=== PATIENT | male | born 1970 | race Two or more races ===

== ENCOUNTER 2021-11-18 06:32 | Emergency (ER) | payer MEDICAID, SELFPAY ==
--- NOTE | 2021-11-18 | ECG_ITS ---
Test Reason : chest pain Blood Pressure : / mmHG Vent. Rate : 101 BPM Atrial Rate : 101 BPM P-R Int : 148 ms QRS Dur : 082 ms QT Int : 352 ms P-R-T Axes : 048 021 020 degrees QTc Int : 456 ms Sinus tachycardia Otherwise normal ECG When compared with ECG of 28-JUL-2016 20:19, No significant change was found Referred By: Generic ED Physician Electronically Signed By:Brayan Maldonado
--- NOTE | ~2021-11-18 | XR_ITS ---
EXAMINATION: XR CHEST CLINICAL INFORMATION: Chest pain. COMPARISON: Chest CTA dated 07/28/2016. TECHNIQUE: Frontal view of the chest was obtained. FINDINGS: No significant abnormality is noted involving the heart, lungs, mediastinum, bony thorax or soft tissues. XR/XR chest 1V IMPRESSION: No acute cardiopulmonary process.
[2021-11-18 07:01] VITALS: BP 138/89; PULSE 109; RESP 20; TEMP 37.6; O2SAT 93; BMI 32.8
--- NOTE | 2021-11-18 07:10 | ED.NAVMDI ---
HPI - Nausea/Vomiting/Diarrhea General Chief complaint: Nausea/Vomiting/Diarrhea Stated complaint: n/v, fatigue Time Seen by Provider: 11/18/21 07:07 Source: patient Mode of arrival: ambulatory Limitations: no limitations History of Present Illness HPI Narrative: 51 yo male with hx of DM oral medications states he had 3 beers last night and 6 shots then vomited all night - he now feels weak, tired and has some diarrhea, he has chest burning as well. MD elicited complaint: nausea, vomiting and diarrhea Pertinent past history: alcohol abuse Onset (ago): hour(s) (several) Description of vomiting: food contents and watery Associated nausea: Yes Associated abdominal pain: Yes Location of pain: chest and epigastric Radiation: epigastric Pain consistency: constant Severity: moderate Quality: dull and other (burning) Exacerbating factors: eating Relieving factors: none Context: alcohol abuse Associated symptoms: chest pain, loss of appetite, malaise and nausea/vomiting Related Data Previous Rx's Medication Instructions Recorded famotidine 20 mg tablet (Pepcid) 20 mg PO DAILY PRN abdominal 11/18/21 discomfort #30 tabs ondansetron 4 mg disintegrating 4 mg PO Q8H PRN nausea and 11/18/21 tablet vomiting #20 tabs Allergies Allergy/AdvReac Type Severity Reaction Status Date / Time metformin [METFORMIN] Allergy Mild UPSET Unverified 11/18/21 07:04 STOMACH, DIARRHEA Review of Systems Review of Systems: Constitutional : No Weight loss, No Fever, No Chills ENT/Mouth : No sore throat, No Rhinorrhea Eyes: No Swelling, No Redness Cardiovascular : pos Chest Pain, No SOB, NoEdema Respiratory : No Cough, No Sputum, No Wheezing Gastrointestinal : Positive Nausea, Positive Vomiting, positive Diarrhea, positive abdominal Pain, No Hematochezia, No Melena Genitourinary : No Dysuria, No Urinary Frequency, No Hematuria, No Urgency Musculoskeletal : No joint pain, No Myalgias, No Joint Swelling Skin : No Skin Lesions, No rash Neuro : No Weakness, No Numbness, No Dizziness, No Headache Psych : No Anxiety/Panic, No Depression Heme/Lymph: No Bruising, No Lymphadenopathy Endocrine : No Polyuria, No Polydipsia All other systems reviewed and are negative. Gastrointestinal: Gastrointestinal: Reports nausea PMFSH Past Medical History Attestation statement: The following information was validated with the patient. Medical History (Updated 11/18/21 @ 08:41 by Brandee Duvall DO) Diabetes Social History Social History (Updated 11/18/21 @ 07:18 by Brandee Duvall DO) Alcohol intake: current Patient Tobacco Use Status: Current someday Tobacco user Advance Directives: No Advance Directives Information Provided: No Physical Exam Vital Signs: Vital Signs: Last Vital Signs Temp 99.6 F 11/18/21 07:01 Pulse 109 H 11/18/21 07:01 Resp 20 11/18/21 07:01 BP 138/89 11/18/21 07:01 Pulse Ox 93 11/18/21 07:01 O2 Del Method 11/18/21 07:01 BMI result Body Mass Index 32.8 Appearance: Alert. Oriented X3. No acute distress. Eyes: Pupils equal, round and reactive to light. ENT: Pharynx normal. Neck: Normal inspection. Neck supple. CVS: tachycardic heart rate and rhythm. Pulses normal. Respiratory: No respiratory distress. Breath sounds normal. Abdomen: Soft and nontender. Skin: Skin warm and dry. Normal skin color. Normal skin turgor. Extremities: No lower extremity edema. No calf ttp Neuro: Oriented X 3. No motor deficit. No sensory deficit. Course Course Course Narrative: feels better stable for DC, tolerating PO MDM - Nausea/Vomiting/Diarrhea MDM Narrative Medical decision making narrative: 51 yo male with hx of DM - drank heavily last night now c/o epigastric pain with n/v and burning chest pain at this time will need labs, troponin, EKG, CXR, IVF zofran/pepcid. possible GERD, gastritis, pancreatitis. Dispo per results and findings. Lab Data Result diagrams: 11/18/21 07:34 11/18/21 07:34 Labs: Lab Results 11/18/21 11/18/21 11/18/21 Range/Units 07:34 07:34 07:34 WBC 10.4 (4.8-10.8) X10*3/uL RBC 4.96 (4.60-5.80) X10*6/uL Hgb 15.0 (14.0-18.0) g/dl Hct 45.1 (42.0-52.0) % MCV 90.9 (80.0-98.0) fL MCH 30.2 (27.0-33.0) pg MCHC 33.3 (31.0-36.0) g/dl RDW 13.2 (11.0-16.0) % Plt Count 185 (160-400) X10*3/uL MPV 10.6 (9.4-12.4) fL Immature Gran % (Auto) 0.7 H (0.0-0.4) % Neut % (Auto) 71.3 (45-73) % Lymph % (Auto) 18.8 L (20-40) % [place] % (Auto) 7.5 (2-11) % Eos % (Auto) 1.3 (0-4) % Baso % (Auto) 0.4 (0-2) % Lymph # (Auto) 2.0 (1.2-4.9) X10*3/uL [place] # (Auto) 0.8 (0.1-1.2) X10*3/uL Eos # (Auto) 0.1 (0.0-0.4) X10*3/uL Baso # (Auto) 0.0 (0.0-0.2) X10*3/uL Abs Immat Gran (auto) 0.07 H (0.00-0.03) X10*3/uL Absolute Neuts (auto) 7.4 (2.0-8.3) x10*3/uL Absolute Nucleated RBC 0.000 (0.0-0.012) X10*3/uL Nucleated RBC % (auto) 0.0 (0.0-0.2) /100WBC Sodium 137 (135-145) mmol/L Potassium 4.6 (3.3-5.1) mmol/L Chloride 99 (96-108) mmol/L Carbon Dioxide 27 (22-29) mmol/L Anion Gap 16 (12-20) BUN 15 (9-16) mg/dL Creatinine 0.95 (0.5-1.4) mg/dL Estim Creat Clear Calc 93.4 Estimated GFR > 60 Random Glucose 185 H (60-115) mg/dL Calcium 10.5 H (8.4-10.2) mg/dL Total Bilirubin 0.5 (0.0-1.0) mg/dL Direct Bilirubin 0.2 (0.0-0.5) mg/dL AST 22 (5-37) U/L ALT 30 (0-40) U/L Alkaline Phosphatase 82 (39-117) U/L Troponin I High Sens (<3.5-35.0) ng/L Total Protein 7.6 (6.5-8.0) g/dL Albumin 4.7 (3.5-5.0) g/dL Lipase 41 (8-78) U/L Ethyl Alcohol < 10 mg/dL COVID-19 (JAMIE) (Negative) COVID-19 Clin Com 11/18/21 11/18/21 Range/Units 07:34 07:34 WBC (4.8-10.8) X10*3/uL RBC (4.60-5.80) X10*6/uL Hgb (14.0-18.0) g/dl Hct (42.0-52.0) % MCV (80.0-98.0) fL MCH (27.0-33.0) pg MCHC (31.0-36.0) g/dl RDW (11.0-16.0) % Plt Count (160-400) X10*3/uL MPV (9.4-12.4) fL Immature Gran % (Auto) (0.0-0.4) % Neut % (Auto) (45-73) % Lymph % (Auto) (20-40) % [place] % (Auto) (2-11) % Eos % (Auto) (0-4) % Baso % (Auto) (0-2) % Lymph # (Auto) (1.2-4.9) X10*3/uL [place] # (Auto) (0.1-1.2) X10*3/uL Eos # (Auto) (0.0-0.4) X10*3/uL Baso # (Auto) (0.0-0.2) X10*3/uL Abs Immat Gran (auto) (0.00-0.03) X10*3/uL Absolute Neuts (auto) (2.0-8.3) x10*3/uL Absolute Nucleated RBC (0.0-0.012) X10*3/uL Nucleated RBC % (auto) (0.0-0.2) /100WBC Sodium (135-145) mmol/L Potassium (3.3-5.1) mmol/L Chloride (96-108) mmol/L Carbon Dioxide (22-29) mmol/L Anion Gap (12-20) BUN (9-16) mg/dL Creatinine (0.5-1.4) mg/dL Estim Creat Clear Calc Estimated GFR Random Glucose (60-115) mg/dL Calcium (8.4-10.2) mg/dL Total Bilirubin (0.0-1.0) mg/dL Direct Bilirubin (0.0-0.5) mg/dL AST (5-37) U/L ALT (0-40) U/L Alkaline Phosphatase (39-117) U/L Troponin I High Sens < 3.5 (<3.5-35.0) ng/L Total Protein (6.5-8.0) g/dL Albumin (3.5-5.0) g/dL Lipase (8-78) U/L Ethyl Alcohol mg/dL COVID-19 (JAMIE) Negative (Negative) COVID-19 Clin Com See Note ECG Data Attestation: I personally reviewed and interpreted this ECG as follows: ECG interpretation date: 11/18/21 ECG interpretation time: 07:24 Interpretation: Rate: 101 Rhythm: sinus tachycardia [place]: normal Normal P waves. Normal SHAILA. Normal QRS complex. ST T wave : normal no JIMMIE qTC: normal prior studies: no acute ischemia The study has been interpreted contemporaneously by me. . Discharge Plan Discharge Clinical Impression: Vomiting Qualifiers: Vomiting type: unspecified Nausea presence: with nausea Qualified Code(s): R11.2 - Nausea with vomiting, unspecified Gastritis Qualifiers: Gastritis type: alcoholic Chronicity: acute Gastritis bleeding: without bleeding Qualified Code(s): K29.20 - Alcoholic gastritis without bleeding Patient Disposition: Home, Self-Care Instructions: Gastritis (ED), Acute Nausea and Vomiting (ED) Additional Instructions: return to ED for any worsening symptoms or concerns please avoid spicy greasy fatty food, no alcohol take pepcid daily for the next 1 week Prescriptions: New famotidine [Pepcid] 20 mg tablet 20 mg PO DAILY PRN (Reason: abdominal discomfort) Qty: 30 0RF ondansetron 4 mg tablet,disintegrating 4 mg PO Q8H PRN (Reason: nausea and vomiting) Qty: 20 0RF Stand Alone Forms: Work/School Release
[2021-11-18 07:38] LABS: MANUAL DIFF FLAG NO
[2021-11-18] MEDS: 0.9 % Sodium Chloride 1,000 ML 999 ML IV (07:38)
[2021-11-18] MEDS: Famotidine/PF 20 MG/2 ML VIAL IVPUSH (07:38)
[2021-11-18] MEDS: ondansetron HCL 4 MG/2 ML VIAL IVPUSH (07:38)
[2021-11-18 07:40] LABS: Basophils Percent Auto 0.4 % (0-2); Eosinophils Absolute Auto 0.1 X10*3/uL (0.0-0.4); Eosinophils Percent Auto 1.3 % (0-4); Hematocrit 45.1 % (42.0-52.0); Imm Gran Abs Auto 0.07 X10*3/uL (0.00-0.03); Imm Gran Pct Auto 0.7 % (0.0-0.4); Lymphocytes Percent Auto 18.8 % (20-40); Mean Corpuscular HGB Conc 33.3 g/dl (31.0-36.0); Mean Corpuscular Hemoglobin 30.2 pg (27.0-33.0); Mean Corpuscular Volume 90.9 fL (80.0-98.0); Mean Platelet Volume 10.6 fL (9.4-12.4); Monocytes Absolute Auto 0.8 X10*3/uL (0.1-1.2); Monocytes Percent Auto 7.5 % (2-11); Neutrophils Absolute Auto 7.4 x10*3/uL (2.0-8.3); Neutrophils Percent Auto 71.3 % (45-73); Platelet Count 185 X10*3/uL (160-400); Red Blood Count 4.96 X10*6/uL (4.60-5.80); Red Cell Distribution Width 13.2 % (11.0-16.0); White Blood Count 10.4 X10*3/uL (4.8-10.8)
[2021-11-18 07:56] LABS: Ethanol < 10 mg/dL
[2021-11-18 07:57] LABS: COVID-19 Test Negative (Negative); IDNOW Serial# 16C4AD1C
[2021-11-18 08:02] LABS: Alanine Aminotransferase 30 U/L (0-40); Albumin Level 4.7 g/dL (3.5-5.0); Alkaline Phosphatase 82 U/L (39-117); Anion Gap 16 (12-20); Aspartate Amino Transferase 22 U/L (5-37); Bilirubin Direct 0.2 mg/dL (0.0-0.5); Bilirubin Total 0.5 mg/dL (0.0-1.0); Blood Urea Nitrogen 15 mg/dL (9-16); Calcium 10.5 mg/dL (8.4-10.2); Carbon Dioxide 27 mmol/L (22-29); Chloride 99 mmol/L (96-108); Creatinine Clr Calc Pharmacy 93.4; Estimated Glomerular Filt Rate > 60; Glucose Random 185 mg/dL (60-115); Lipase 41 U/L (8-78); Potassium 4.6 mmol/L (3.3-5.1); Sodium 137 mmol/L (135-145); Total Protein 7.6 g/dL (6.5-8.0)
[2021-11-18 08:03] LABS: Troponin-I High Sensitivity < 3.5 ng/L (<3.5-35.0)
== END 2021-11-18 09:12 | disposition home or self-care (01) ==
PROVIDERS: Emergency Provider Emergency Medicine
DX: K29.20 Alcoholic gastritis without bleeding (principal); Z20.822 Contact with and (suspected) exposure to COVID-19; R11.2 Nausea with vomiting, unspecified; R00.0 Tachycardia, unspecified; E11.9 Type 2 diabetes mellitus without complications; F17.200 Nicotine dependence, unspecified, uncomplicated
CPT/HCPCS: 36415; 71045; 80048; 80076; 82077; 83690; 84484; 85025; 87635; 93005; 96361; 96374; 96375; 99283; 99284; J2405

== ENCOUNTER 2022-05-17 09:51 | Emergency (ER) | payer MEDICAID, SELFPAY ==
--- NOTE | ~2022-05-17 | XR_ITS ---
EXAMINATION: XR WRIST, RIGHT CLINICAL INFORMATION: Pain and swelling COMPARISON: None TECHNIQUE: PA, lateral, and oblique views of the right wrist. FINDINGS: There are very small osteophytes of the first carpometacarpal joint. The scapholunate joint space measures up to 0.5 cm wide. There is associated loss of articular cartilage space, subarticular sclerosis and small osteophytes of the radioscaphoid joint. The lateral view shows scapholunate angle of approximately 60 degrees. No carpal bone fracture. The capitolunate joint space is maintained. There is osteophyte formation of the degenerated thumb interphalangeal joint. XR/XR wrist RT min 3V IMPRESSION: * No acute abnormalities within the right wrist. No evidence of carpal bone fracture. 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
[2022-05-17 10:03] VITALS: BP 134/92; PULSE 102; RESP 19; TEMP 36.6; O2SAT 97; BMI 32.9
--- NOTE | 2022-05-17 12:12 | ED_ITS ---
HPI - Extremity Problem General Chief complaint: Extremity Problem Stated complaint: Leg pain L&R/R wrist pain Time Seen by Provider: 05/17/22 11:54 Source: patient Mode of arrival: ambulatory Limitations: no limitations History of Present Illness HPI Narrative: 51 yo male presents to the ER for evaluation of bilateral groin that started 2 weeks ago, left worse than right along with nontraumatic right wrist pain and swelling that has been going on for at least a month. He states that his bilateral groins have been sore, worse with movement and palpation. He also states when he everts the leg and stretches his leg forward he feels a pulling and stretching sensation in the groin with worsening pain. He states the pain is worse with coughing. He has no testicular pain. No UTI or STI symptoms. No abdominal pain, nausea, vomiting, diarrhea. No fevers or chills. He denies any injury. Patient also reports nontraumatic right wrist pain at the base of his right thumb extending to the right wrist. He states this area intermittently swells and then resolves. It is worse with palpation and range of motion. MD Complaint: extremity pain, joint swelling and joint pain Onset (ago): week(s) Pain Consistency: intermittent Location: left, right and lower extremity Severity scale (1-10): 6 Quality: aching Radiation: none Relieving factors: rest Exacerbating factors: range of motion, walking, exertion and palpation Associated symptoms: denies other symptoms Related Data Previous Rx's Medication Instructions Recorded famotidine 20 mg tablet (Pepcid) 20 mg PO DAILY PRN abdominal 11/18/21 discomfort #30 tabs ondansetron 4 mg disintegrating 4 mg PO Q8H PRN nausea and 11/18/21 tablet vomiting #20 tabs cyclobenzaprine 10 mg tablet 10 mg PO TID PRN muscle spasm #14 05/17/22 tabs ibuprofen 600 mg tablet 600 mg PO Q8H PRN pain #20 tabs 05/17/22 Allergies Allergy/AdvReac Type Severity Reaction Status Date / Time metformin [METFORMIN] Allergy Mild UPSET Unverified 11/18/21 07:04 STOMACH, DIARRHEA Review of Systems Review of Systems: Yes all other systems are reviewed and are negative [facility] Past Medical History Medical History (Updated 05/17/22 @ 13:19 by JEAN-PAUL Yun) Diabetes Social History Social History (Updated 11/18/21 @ 07:18 by Caro Duvall DO) Alcohol intake: current Patient Tobacco Use Status: Current someday Tobacco user Advance Directives: No Physical Exam Vital Signs: Vital Signs: Last Vital Signs Temp 98 F 05/17/22 10:03 Pulse 102 H 05/17/22 10:03 Resp 19 05/17/22 10:03 BP 134/92 H 05/17/22 10:03 Pulse Ox 97 05/17/22 10:03 O2 Del Method 05/17/22 10:03 BMI result Body Mass Index 32.9 Appearance: Alert. Oriented X3. No acute distress. Eyes: Pupils equal, round and reactive to light. ENT: Pharynx normal. Neck: Normal inspection. Neck supple. CVS: Normal heart rate and rhythm. Pulses normal. Respiratory: No respiratory distress. Breath sounds normal. Abdomen: Soft and nontender. +BS x4. no palpable inguinal hernias Skin: Skin warm and dry. Normal skin color. Normal skin turgor. No rashes. Extremities: No lower extremity edema. bilateral inguinal soft tissue tenderness with palpable spasm of the hip flexor muscle on the left, tender. no overlying skin changes. right wrist Neuro: Oriented X 3. nonfocal. steady gait Course Course Course Narrative: 51 male presenting with bilateral inguinal pain and right wrist pain all nontraumatic. Hip exam is consistent with muscular pain and palpable spasm. No inguinal hernia on exam. XR wrist showing chronic osteoarthritis. placed in wrist velcro for support. will refer to ortho for further management. stable for d/c with nsaid and muscle relaxer. Medical Decision Making Differential Diagnosis Differential Diagnoses: The differential diagnosis associated with the presentation includes muscle strain, pulled muscle, inguinal hernia, viral syndrome, osteoarthritis, carpal tunnel syndrome, thumb sprain Independent Interpretation I performed an independent interpretation of an: Plain X-Ray Interpretation: No acute fractures visualized. Radiology Impression Discussion of test interpretation with radiology: I have reviewed the radiologist's reading. Radiologist Impression: IMPRESSION: *? No acute abnormalities within the right wrist. No evidence of carpal bone fracture. *? 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 External Record Review External record reviewed: Prior outpatient labs and Outside ED record Prescription Management I considered prescription management with: Pain Medication NSAID and muscle relaxer Critical Care Time Critical Care Time Critical Care Time: No Discharge Plan Discharge Clinical Impression: Groin strain, Osteoarthritis Patient Disposition: Home, Self-Care Instructions: Osteoarthritis (ED), Groin Strain (ED) Additional Instructions: Your wrist x-ray today showed: *? No acute abnormalities within the right wrist. No evidence of carpal bone fracture. *? 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 Wear the provided wrist splint as needed for comfort Take the prescribed medications as directed Extra strength tylenol is also a good option for osteoarthritis pain Follow up with Orthopedics and your PCP for further managemnet. Prescriptions: New cyclobenzaprine 10 mg tablet 10 mg PO TID PRN (Reason: muscle spasm) Qty: 14 0RF ibuprofen 600 mg tablet 600 mg PO Q8H PRN (Reason: pain) Qty: 20 0RF No Action famotidine [Pepcid] 20 mg tablet 20 mg PO DAILY PRN (Reason: abdominal discomfort) Qty: 30 0RF ondansetron 4 mg tablet,disintegrating 4 mg PO Q8H PRN (Reason: nausea and vomiting) Qty: 20 0RF Referrals: [facility] [place] [facility] Surgeons [Provider Group] Interventions: ED Discharge Assessment Last Done: 05/17/22 13:36 Discharge Date/Time: 05/17/22 13:37
== END 2022-05-17 13:37 | disposition home or self-care (01) ==
PROVIDERS: Emergency Provider Emergency Medicine Emergency Medical Services; PCP Nurse Practitioner Family
DX: S39.011A Strain of muscle, fascia and tendon of abdomen, initial encounter (principal); X58.XXXA Exposure to other specified factors, initial encounter; M19.031 Primary osteoarthritis, right wrist; E11.9 Type 2 diabetes mellitus without complications; F17.200 Nicotine dependence, unspecified, uncomplicated; Y93.9 Activity, unspecified; Y92.9 Unspecified place or not applicable; Y99.9 Unspecified external cause status
CPT/HCPCS: 73110; 99283

== ENCOUNTER 2024-02-05 12:38 | Emergency (ER) | payer OTHER, SELFPAY ==
[2024-02-05 13:08] VITALS: BP 153/81; PULSE 84; RESP 16; TEMP 36.7; O2SAT 98; BMI 29.3
--- NOTE | 2024-02-05 13:15 | ED_ITS ---
HPI - Skin/Abscess/Foreign Bdy General Chief complaint: Skin/Abscess/Foreign Body Stated complaint: Lump below abd Time Seen by Provider: 02/05/24 14:33 Source: patient, RN notes reviewed and old records reviewed Mode of arrival: ambulatory History of Present Illness ED Provider: Jackie Iverson PA-C HPI narrative: 53-year-old male with no significant past medical history presenting to the ED complaining of abscess to right lower abdomen x few days. Reports area increasingly painful. Denies fever/chills, drainage, nausea, vomiting, constipation, diarrhea Related Data Previous Rx's ?Medication ?Instructions ?Recorded famotidine 20 mg tablet (Pepcid) 20 mg PO DAILY PRN abdominal 11/18/21 discomfort #30 tabs ondansetron 4 mg disintegrating 4 mg PO Q8H PRN nausea and 11/18/21 tablet vomiting #20 tabs cyclobenzaprine 10 mg tablet 10 mg PO TID PRN muscle spasm #14 05/17/22 tabs ibuprofen 600 mg tablet 600 mg PO Q8H PRN pain #20 tabs 05/17/22 cephalexin 500 mg capsule 500 mg PO QID 7 days #28 caps 02/05/24 doxycycline hyclate 100 mg tablet 100 mg PO BID 7 days #14 tabs 02/05/24 Allergies Allergy/AdvReac Type Severity Reaction Status Date / Time metformin [METFORMIN] Allergy Mild UPSET Verified 02/05/24 13:14 STOMACH, DIARRHEA Review of Systems Review of Systems: Yes all other systems are reviewed and are negative Constitutional: Constitutional: Reports as per [facility] Past Medical History Attestation statement: The following information was validated with the patient. Source: old records reviewed Medical History Diabetes Social History Social History Alcohol intake: current Patient Tobacco Use Status: Current someday Tobacco user Advance Directives: No Advance Directives Information Provided: No Physical Exam Vital Signs: Vital Signs: Last Vital Signs Temp 98.1 F 02/05/24 13:08 Pulse 84 02/05/24 13:08 Resp 16 02/05/24 13:08 BP 153/81 H 02/05/24 13:08 Pulse Ox 98 02/05/24 13:08 O2 Del Method Room Air 02/05/24 13:08 BMI result Body Mass Index 29.3 Const: General: cooperative, healthy appearing and no acute distress Orientation/consciousness: patient oriented x3 Limitations: no limitations HEENT: Head: Yes normal to inspection and Yes atraumatic Ears: hearing grossly normal bilaterally General nose exam: Normal external nose present Face and sinus: Yes normal facial exam Eyes: General: appearance normal, both eyes and all related structures EOM: EOMs intact bilaterally Neck: Neck: Yes normal visual inspection and Yes no meningeal signs Resp: Effort & Inspection: normal respiratory effort and no respiratory distress Cardio: Rate: regular rate GI: Other: + superficial fluctuant abscess noted to right lower quadrant with surrounding erythema. Warm. Tender to palpation. No pointing Inspection: Yes normal to inspection Palpation (GI): Soft to palpation, Tenderness to palpation present (GI) (At abscess site) in the RLQ, no guarding and not rigid Neuro: General: patient oriented x3, tone normal and no meningeal signs Cranial nerves: Yes CN's II-XII intact bilaterally Gait exam (Neuro): Normal gait present Extrem: General: Yes normal to inspection Course Course Course Narrative: Rapid medical exam performed by Christina Be PA-C. The patient is a 53-year-old male with a history of diabetes, presenting with tender swelling over right lower abdomen x4 days. On exam, there is a soft swelling over right lower abdominal wall, overlying erythema and central fluctuance. It is tender to palpation. I do not feel the patient requires imaging I do not feel he requires labs. He requires I and D. The patient will return to the weight room pending his full assessment. Medications Administered Discontinued Medications Generic Name Dose Route Start Last Admin Trade Name Freq PRN Reason Stop Dose Admin Lidocaine HCl 10 ml 02/05/24 14:47 02/05/24 15:46 Lidocaine Hcl 1 % Mpf 5 Ml Vial INFILTRATI 02/05/24 14:48 10 ml ONCE ONE Administration Medical Decision Making Medical Decision Making [facility] Narrative: 53-year-old male with no significant past medical history presenting to the ED complaining of abscess to right lower abdomen x few days. On exam vital signs stable, NAD, nontoxic appearing physical exam as noted above consistent with superficial abscess to right lower quadrant with surrounding cellulitis. Low suspicion for deeper/tracking infection. Unlikely appendicitis/diverticulitis Plan: I & D, p.o. antibiotics Please refer to course for remaining clinical decision making, interpretation of labs/imaging results, and discussions with consultants and/or family members. Differential Diagnosis Differential Diagnoses: The differential diagnosis associated with the presentation includes As above Admission/Observation Consideration of admission/observation: Escalation of care including admission/observation considered Lab Data MDM Lab Attestation statement: I reviewed the patient's lab results. Radiology Impression Discussion of test interpretation with radiology: I have reviewed the radiologist's reading. External Record Review External record reviewed: Inpatient record, Office record, Outpatient record, Prior outpatient labs, Prior outpatient radiology, Primary care record and Outside ED record Tests considered The following testing was considered but not selected: As above Prescription Management I considered prescription management with: Pain Medication and Antibiotic Procedures Abscess I/D Site: abdomen Side (if applicable): right Local Anesthetic: lidocaine 1% Amount of anesthesia used (mL): 5 Technique: incised with blade Sent for culture/gram staining?: No Irrigation: No Packing used?: none Discharge Plan Discharge Clinical Impression: Abscess of skin or subcutaneous tissue, Cellulitis Patient Disposition: Home, Self-Care Instructions: Cellulitis (DC), Abscess (ED) Additional Instructions: Your abscess was drained today in the emergency department. Please apply warm compresses Please take Keflex and doxycycline which are antibiotics until completion. Follow-up with her doctor If area begins to look worse, growth, is more red return to the emergency department Prescriptions: New cephalexin 500 mg capsule 500 mg PO QID 7 Days Qty: 28 0RF doxycycline hyclate 100 mg tablet 100 mg PO BID 7 Days Qty: 14 0RF No Action famotidine [Pepcid] 20 mg tablet 20 mg PO DAILY PRN (Reason: abdominal discomfort) Qty: 30 0RF ondansetron 4 mg tablet,disintegrating 4 mg PO Q8H PRN (Reason: nausea and vomiting) Qty: 20 0RF cyclobenzaprine 10 mg tablet 10 mg PO TID PRN (Reason: muscle spasm) Qty: 14 0RF ibuprofen 600 mg tablet 600 mg PO Q8H PRN (Reason: pain) Qty: 20 0RF Referrals: Rosario Lopez, [employer] [Primary Care Provider] - 5 days Print Language: Monegasque
[2024-02-05] MEDS: Lidocaine HCl 1 % MPF 5 ML VIAL 10 ML INFILTRATI (15:46)
[2024-02-05 16:20] VITALS: BP 124/85; PULSE 85; RESP 16; TEMP 36.6; O2SAT 96
== END 2024-02-05 16:20 | disposition home or self-care (01) ==
PROVIDERS: Emergency Provider Emergency Medicine Emergency Medical Services; PCP Nurse Practitioner Family
DX: L02.211 Cutaneous abscess of abdominal wall (principal)
CPT/HCPCS: 10060; 99282; 99284

== ENCOUNTER 2024-06-13 12:44 | Emergency (ER) | payer OTHER, SELFPAY ==
--- NOTE | ~2024-06-13 | XR_ITS ---
EXAMINATION: XR CHEST 2 VIEWS HISTORY: chest pain COMPARISON: Comparison is made with the prior examination dated 11/18/2021. FINDINGS: PA and lateral views of the chest are submitted. The lungs are expanded and clear. There is no pleural effusion, pneumothorax, or pulmonary vascular congestion. The heart is normal in size. The bones are intact. XR/XR chest 2V IMPRESSION: No acute cardiopulmonary abnormality. Electronically signed by: Elias Castillo MD 06/13/2024 01:50 PM [facility] [place]
--- NOTE | 2024-06-13 12:46 | ECG_ITS ---
Test Reason : cp Blood Pressure : */* mmHG Vent. Rate : 121 BPM Atrial Rate : 121 BPM P-R Int : 130 ms QRS Dur : 80 ms QT Int : 318 ms P-R-T Axes : 56 16 83 degrees QTcB Int : 451 ms Sinus tachycardia with Premature supraventricular complexes Nonspecific ST and T wave abnormality Abnormal ECG When compared with ECG of 18-Nov-2021 07:19, Premature supraventricular complexes are now Present Nonspecific T wave abnormality now evident in Lateral leads Referred By: Generic ED Physician Electronically Signed By: DANTE PRIDE
[2024-06-13 13:17] VITALS: BP 150/88; PULSE 118; RESP 20; TEMP 37.1; O2SAT 98; BMI 29.6
[2024-06-13 14:01] LABS: Basophils Absolute Auto 0.1 X10*3/uL (0.0-0.2); Basophils Percent Auto 0.7 % (0-2); Eosinophils Absolute Auto 0.1 X10*3/uL (0.0-0.4); Eosinophils Percent Auto 1.7 % (0-4); Hematocrit 45.6 % (42.0-52.0); Imm Gran Abs Auto 0.03 X10*3/uL (0.00-0.03); Imm Gran Pct Auto 0.4 % (0.0-0.4); Lymphocytes Absolute Auto 1.4 X10*3/uL (1.2-4.9); MANUAL DIFF FLAG NO; Mean Corpuscular HGB Conc 35.1 g/dl (31.0-36.0); Mean Corpuscular Hemoglobin 31.3 pg (27.0-33.0); Mean Corpuscular Volume 89.2 fL (80.0-98.0); Mean Platelet Volume 11.2 fL (9.4-12.4); Monocytes Absolute Auto 0.5 X10*3/uL (0.1-1.2); Monocytes Percent Auto 7.2 % (2-11); Neutrophils Absolute Auto 4.9 x10*3/uL (2.0-8.3); Platelet Count 220 X10*3/uL (160-400); Red Blood Count 5.11 X10*6/uL (4.60-5.80); Red Cell Distribution Width 11.6 % (11.0-16.0)
[2024-06-13 14:29] LABS: Alanine Aminotransferase 27 U/L (0-40); Albumin Level 4.5 g/dL (3.5-5.0); Alkaline Phosphatase 96 U/L (39-117); Anion Gap 15 (12-20); Aspartate Amino Transferase 28 U/L (5-37); Bilirubin Total 0.5 mg/dL (0.0-1.0); Blood Urea Nitrogen 25 mg/dL (9-16); Carbon Dioxide 28 mmol/L (22-29); Chloride 98 mmol/L (96-108); Creatinine Clr Calc Pharmacy 72.4; Estimated Glomerular Filt Rate > 60; Glucose Random 363 mg/dL (60-115); Sodium 136 mmol/L (135-145); Total Protein 8.1 g/dL (6.5-8.0)
[2024-06-13 14:35] LABS: Troponin-I High Sensitivity 3.8 ng/L (<3.5-35.0)
[2024-06-13 14:38] LABS: Influenza A PCR NEGATIVE (Negative); Influenza B PCR NEGATIVE (Negative); Resp Syncy Virus RNA Qual PCR NEGATIVE (Negative); SARS COV2 PCR INHOUSE NEGATIVE (Negative)
[2024-06-13 16:00] VITALS: BP 136/84; PULSE 94; RESP 18; TEMP 36.7; O2SAT 98
[2024-06-13 16:27] VITALS: BP 154/83; PULSE 110; RESP 16; TEMP 36.8; O2SAT 96
--- NOTE | 2024-06-13 16:27 | ED.CHESTPAIN ---
HPI - Chest Pain General Chief Complaint: Chest Pain Stated Complaint: Chest pain Time Seen by Provider: 06/13/24 17:14 Source: patient, RN notes reviewed and old records reviewed Mode of arrival: ambulatory History of Present Illness ED Provider: Jackie Iverson PA-C [facility] narrative: 53-year-old male with a past medical history of diabetes (denies taking medications this morning) presenting to the ED complaining of chest pain and palpitations noted this morning while at rest. Reports chronic SOB, unchanged. Reports pain worse with breathing and position changes/movement. Denies fever, chills, cough, pedal edema, history of clots, recent travel. Is a cigarette smoker. Related Data Previous Rx's ?Medication ?Instructions ?Recorded famotidine 20 mg tablet (Pepcid) 20 mg PO DAILY PRN abdominal 11/18/21 discomfort #30 tabs ondansetron 4 mg disintegrating 4 mg PO Q8H PRN nausea and 11/18/21 tablet vomiting #20 tabs cyclobenzaprine 10 mg tablet 10 mg PO TID PRN muscle spasm #14 05/17/22 tabs ibuprofen 600 mg tablet 600 mg PO Q8H PRN pain #20 tabs 05/17/22 cephalexin 500 mg capsule 500 mg PO QID 7 days #28 caps 02/05/24 doxycycline hyclate 100 mg tablet 100 mg PO BID 7 days #14 tabs 02/05/24 Allergies Allergy/AdvReac Type Severity Reaction Status Date / Time No Known Allergies Allergy Verified 06/13/24 13:21 Review of Systems Review of Systems: Yes all other systems are reviewed and are negative Constitutional: Constitutional: Reports as per [facility] Past Medical History Attestation statement: The following information was validated with the patient. Source: old records reviewed Medical History Diabetes Social History Social History Alcohol intake: current Patient Tobacco Use Status: Current someday Tobacco user Smoked in Last 30 Days: No Use of substances other than those prescribed or required for medical reasons: No Advance Directives: No Advance Directives Information Provided: No Physical Exam Vital Signs: Vital Signs: Last Vital Signs Temp 98.2 F 06/13/24 16:27 Pulse 110 H 06/13/24 16:27 Resp 16 06/13/24 16:27 BP 154/83 H 06/13/24 16:27 Pulse Ox 96 06/13/24 16:27 O2 Del Method Room Air 06/13/24 16:27 BMI result Body Mass Index 29.6 Const: General: cooperative, healthy appearing and no acute distress Orientation/consciousness: patient oriented x3 Limitations: no limitations HEENT: Head: Yes normal to inspection and Yes atraumatic Ears: hearing grossly normal bilaterally General nose exam: Normal external nose present Face and sinus: Yes normal facial exam Eyes: General: appearance normal, both eyes and all related structures EOM: EOMs intact bilaterally Neck: Neck: Yes normal visual inspection and Yes no meningeal signs Resp: Effort & Inspection: normal respiratory effort and no respiratory distress Auscultation: clear to auscultation bilaterally, no crackles, no rales, no rhonchi and no wheezes Cardio: Rate: regular rate and tachycardic Heart sounds: S1 normal heart sound present and S2 normal heart sound present GI: Inspection: Yes normal to inspection Palpation (GI): Soft to palpation, nontender, no guarding and not rigid Skin: Rashes: no rashes Wounds: no wounds Neuro: General: patient oriented x3, tone normal and no meningeal signs Cranial nerves: Yes CN's II-XII intact bilaterally Gait exam (Neuro): Normal gait present Extrem: General: Yes normal to inspection and Yes no pedal edema Course Course Course Narrative: This is a rapid medical exam. Deferred additional HPI, ROS PE to primary provider. 53 yo male with history of DM (did not take morning meds) here with complaints of chest pain with waking which is worsened with breathing.coughing. Initial trop negative, plan for repeat. TONY Stokes [employer] -glucose elevated at 363 > no anion gap > will give 1L LR and home dose of diabetic medications. BUN elevated 25 -initial troponin 3.8 > repeat 6.4 >> will obtain additional repeat to rule out ACS -viral testing negative XR chest 2V IMPRESSION: No acute cardiopulmonary abnormality. -193--D-dimer negative, PE unlikely. 3rd troponin without significant rise, mi unlikely -194--repeat POC 341 > patient is actively drinking Pepsi which is at bedside. > recommended additional IVF and repeat POC however patient refused. Patient is supplied with jug of water and recommended cessation of soda/dietary control. Will be discharged Results discussed with patient including worrisome signs and symptoms and strict return precautions, and when to return to the emergency department. They verbalized understanding and feel safe for discharge at this time. Medications Administered Discontinued Medications Generic Name Dose Route Start Last Admin Trade Name Jose Roberto PRN Reason Stop Dose Admin Lactated Ringer's 1,000 mls @ 999 mls/hr 06/13/24 17:30 06/13/24 19:30 Lr IV 06/13/24 18:30 Infused .Q1H1M OLU Infusion Metformin HCl 500 mg 06/13/24 17:29 06/13/24 17:47 Metformin Hcl Er 500 Mg Tab.Er.24h PO 06/13/24 17:30 500 mg ONCE ONE Administration Sitagliptin Phosphate 100 mg 06/13/24 17:29 06/13/24 17:47 Sitagliptin Phosphate 100 Mg Tablet PO 06/13/24 17:30 100 mg ONCE ONE Administration Medical Decision Making Medical Decision Making [facility] Narrative: 53-year-old male with a past medical history of diabetes (denies taking medications this morning) presenting to the ED complaining of chest pain and palpitations noted this morning while at rest. Reports chronic SOB, unchanged. Reports pain worse with breathing and position changes/movement. On exam tachycardic, NAD, nontoxic appearing, lungs CTA. Concern for atypical ACS vs thyroid dysfunction vs PE vs viral illness. Rule out pneumonia vs PTX. Lower suspicion for dissection, DVT, pericarditis/myocarditis Plan: EKG, labs, CXR, viral testing Please refer to course for remaining clinical decision making, interpretation of labs/imaging results, and discussions with consultants and/or family members. Differential Diagnosis Differential Diagnoses: The differential diagnosis associated with the presentation includes As above Admission/Observation Consideration of admission/observation: Escalation of care including admission/observation considered Lab Data [facility] Lab Attestation statement: I reviewed the patient's lab results. 06/13/24 13:52 06/13/24 13:52 Labs: Lab Results 06/13/24 06/13/24 06/13/24 Range/Units 13:52 17:04 17:46 WBC 7.0 (4.8-10.8) X10*3/uL RBC 5.11 (4.60-5.80) X10*6/uL Hgb 16.0 (14.0-18.0) g/dl Hct 45.6 (42.0-52.0) % MCV 89.2 (80.0-98.0) fL MCH 31.3 (27.0-33.0) pg MCHC 35.1 (31.0-36.0) g/dl RDW 11.6 (11.0-16.0) % Plt Count 220 (160-400) X10*3/uL MPV 11.2 (9.4-12.4) fL Immature Gran % (Auto) 0.4 (0.0-0.4) % Neut % (Auto) 70.0 (45-73) % Lymph % (Auto) 20.0 (20-40) % Kay % (Auto) 7.2 (2-11) % Eos % (Auto) 1.7 (0-4) % Baso % (Auto) 0.7 (0-2) % Lymph # (Auto) 1.4 (1.2-4.9) X10*3/uL Kay # (Auto) 0.5 (0.1-1.2) X10*3/uL Eos # (Auto) 0.1 (0.0-0.4) X10*3/uL Baso # (Auto) 0.1 (0.0-0.2) X10*3/uL Abs Immat Gran (auto) 0.03 (0.00-0.03) X10*3/uL Absolute Neuts (auto) 4.9 (2.0-8.3) x10*3/uL Absolute Nucleated RBC 0.000 (0.0-0.012) X10*3/uL Nucleated RBC % (auto) 0.0 (0.0-0.2) /100WBC D-Dimer High Sensitivty < 150 NG/ML Sodium 136 (135-145) mmol/L Potassium 5.0 (3.3-5.1) mmol/L Chloride 98 (96-108) mmol/L Carbon Dioxide 28 (22-29) mmol/L Anion Gap 15 (12-20) BUN 25 H (9-16) mg/dL Creatinine 1.14 (0.5-1.4) mg/dL Estim Creat Clear Calc 72.4 Estimated GFR > 60 Random Glucose 363 H* (60-115) mg/dL Calcium 10.0 (8.4-10.2) mg/dL Magnesium 2.0 (1.6-2.6) mg/dL Total Bilirubin 0.5 (0.0-1.0) mg/dL AST 28 (5-37) U/L ALT 27 (0-40) U/L Alkaline Phosphatase 96 (39-117) U/L Troponin I High Sens 3.8 6.4 D (<3.5-35.0) ng/L B-Natriuretic Peptide 10 (<100) pg/mL Total Protein 8.1 H (6.5-8.0) g/dL Albumin 4.5 (3.5-5.0) g/dL Beta-Hydroxybutyrate 0.10 (0.02-0.27) mmol/L TSH 0.46 (0.32-4.0) uIU/mL Influenza Type A (PCR) NEGATIVE (Negative) Influenza Type B (PCR) NEGATIVE (Negative) RSV RNA Qual (PCR) NEGATIVE (Negative) SARS-CoV-2 RNA (RT-PCR) NEGATIVE (Negative) 06/13/24 Range/Units 19:04 WBC (4.8-10.8) X10*3/uL RBC (4.60-5.80) X10*6/uL Hgb (14.0-18.0) g/dl Hct (42.0-52.0) % MCV (80.0-98.0) fL MCH (27.0-33.0) pg MCHC (31.0-36.0) g/dl RDW (11.0-16.0) % Plt Count (160-400) X10*3/uL MPV (9.4-12.4) fL Immature Gran % (Auto) (0.0-0.4) % Neut % (Auto) (45-73) % Lymph % (Auto) (20-40) % Kay % (Auto) (2-11) % Eos % (Auto) (0-4) % Baso % (Auto) (0-2) % Lymph # (Auto) (1.2-4.9) X10*3/uL Kay # (Auto) (0.1-1.2) X10*3/uL Eos # (Auto) (0.0-0.4) X10*3/uL Baso # (Auto) (0.0-0.2) X10*3/uL Abs Immat Gran (auto) (0.00-0.03) X10*3/uL Absolute Neuts (auto) (2.0-8.3) x10*3/uL Absolute Nucleated RBC (0.0-0.012) X10*3/uL Nucleated RBC % (auto) (0.0-0.2) /100WBC D-Dimer High Sensitivty NG/ML Sodium (135-145) mmol/L Potassium (3.3-5.1) mmol/L Chloride (96-108) mmol/L Carbon Dioxide (22-29) mmol/L Anion Gap (12-20) BUN (9-16) mg/dL Creatinine (0.5-1.4) mg/dL Estim Creat Clear Calc Estimated GFR Random Glucose (60-115) mg/dL Calcium (8.4-10.2) mg/dL Magnesium (1.6-2.6) mg/dL Total Bilirubin (0.0-1.0) mg/dL AST (5-37) U/L ALT (0-40) U/L Alkaline Phosphatase (39-117) U/L Troponin I High Sens 7.7 (<3.5-35.0) ng/L B-Natriuretic Peptide (<100) pg/mL Total Protein (6.5-8.0) g/dL Albumin (3.5-5.0) g/dL Beta-Hydroxybutyrate (0.02-0.27) mmol/L TSH (0.32-4.0) uIU/mL Influenza Type A (PCR) (Negative) Influenza Type B (PCR) (Negative) RSV RNA Qual (PCR) (Negative) SARS-CoV-2 RNA (RT-PCR) (Negative) Independent Interpretation I performed an independent interpretation of an: EKG (My interpretation EKG sinus tachycardia with premature supraventricular complexes rate of 121. DE interval 130. QRS 80. Nonspecific T-wave abnormality now evident in lateral leads. No STEMI) and Plain X-Ray Radiology Impression Discussion of test interpretation with radiology: I have reviewed the radiologist's reading. Independent Historian Clinical information obtained from an independent historian. History obtained from or confirmed by: Spouse External Record Review External record reviewed: Inpatient record, Office record, Outpatient record, Prior outpatient labs, Prior outpatient radiology, Primary care record and Outside ED record Tests considered The following testing was considered but not selected: As above Prescription Management I considered prescription management with: Other Chronic Conditions Patient?s care impacted by: Diabetes Social Determinants Patient?s care significantly limited by Social Determinants of Health including: Other Social Determinant of Health Discharge Plan Discharge Clinical Impression: Atypical chest pain, Hyperglycemia Patient Disposition: Home, Self-Care Instructions: Noncardiac Chest Pain (ED), Diabetic Hyperglycemia (ED) Additional Instructions: Your blood work is reassuring today. Your sugar was very elevated It is important to continue taking your home prescribed medications Please call your doctor for very close follow-up If you develop constant worsening chest pain, shortness of breath, nausea/vomiting, weakness, continued elevated sugars at home return to the ED immediately Prescriptions: No Action famotidine [Pepcid] 20 mg tablet 20 mg PO DAILY PRN (Reason: abdominal discomfort) Qty: 30 0RF ondansetron 4 mg tablet,disintegrating 4 mg PO Q8H PRN (Reason: nausea and vomiting) Qty: 20 0RF cyclobenzaprine 10 mg tablet 10 mg PO TID PRN (Reason: muscle spasm) Qty: 14 0RF ibuprofen 600 mg tablet 600 mg PO Q8H PRN (Reason: pain) Qty: 20 0RF cephalexin 500 mg capsule 500 mg PO QID 7 Days Qty: 28 0RF doxycycline hyclate 100 mg tablet 100 mg PO BID 7 Days Qty: 14 0RF Referrals: [facility] [Provider Group] - 1 week Rosario Lopez NP [Primary Care Provider] - 5 days Print Language: Yoruba
[2024-06-13 17:32] LABS: Troponin-I High Sensitivity 6.4 ng/L (<3.5-35.0)
[2024-06-13] MEDS: Lactated Ringers 1,000 ML 999 ML IV (17:39)
[2024-06-13] MEDS: SITagliptin Phosphate 100 MG TABLET PO (17:47)
[2024-06-13] MEDS: metFORMIN HCl ER 500 MG TAB.ER.24H PO (17:47)
[2024-06-13 18:09] LABS: B Type Natriuretic Peptide 10 pg/mL (<100)
[2024-06-13 18:09] LABS: D Dimer High Sensitivity < 150 NG/ML
[2024-06-13 18:17] LABS: TSH reflex Free T4 0.46 uIU/mL (0.32-4.0)
[2024-06-13 19:28] LABS: Troponin-I High Sensitivity 7.7 ng/L (<3.5-35.0)
--- NOTE | 2024-06-13 19:30 | PC.NURSE ---
This RN assumed pt care @ 1900. Pt a&ox4, no signs of distress. Pt resting in bed speaking with who is at bedside Pt requested and given water Pt denies pain at this time Pt requesting to use the restroom and detached from IV which was completely infused and bedside monitor. Plan of care ongoing.
--- NOTE | 2024-06-13 19:42 | PC.NURSE ---
Pts POC 341, Provider Jackie notified and aware. Plan of care ongoing.
[2024-06-13 19:44] LABS: Glucose, Whole Blood 341 mg/dL (60-115)
[2024-06-13 20:00] VITALS: BP 158/77; PULSE 92; RESP 18; TEMP 36.6; O2SAT 97
[2024-06-13 20:13] VITALS: BP 158/77; PULSE 92; RESP 18; TEMP 36.6; O2SAT 97
== END 2024-06-13 20:16 | disposition home or self-care (01) ==
PROVIDERS: Nurse Practitioner Family; Physician Assistant; Emergency Provider Emergency Medicine; PCP Nurse Practitioner Family
DX: R07.89 Other chest pain (principal); R73.9 Hyperglycemia, unspecified; R00.0 Tachycardia, unspecified; R11.0 Nausea; R06.02 Shortness of breath; Z03.818 Encounter for observation for suspected exposure to other biological agents ruled out; Z79.899 Other long term (current) drug therapy
CPT/HCPCS: 0241U; 36415; 71046; 80053; 82010; 82947; 83735; 83880; 84443; 84484; 85025; 85379; 93005; 96360; 96361; 99284; 99285; J7120

== ENCOUNTER → 2024-06-13 12:46 | Outpatient (BNV) | payer OTHER, SELFPAY | PROVIDERS: Emergency Provider Emergency Medicine; PCP Nurse Practitioner Family; Visit Provider Internal Medicine | DX: I49.3 Ventricular premature depolarization (principal); R00.0 Tachycardia, unspecified | CPT/HCPCS: 93010 ==

== ENCOUNTER → 2024-06-13 13:35 | Outpatient (BNV) | payer OTHER, SELFPAY | PROVIDERS: PCP Nurse Practitioner Family; Visit Provider Radiology Diagnostic Radiology | DX: R07.9 Chest pain, unspecified (principal) | CPT/HCPCS: 71046 ==

== ENCOUNTER 2024-06-25 14:07 | Outpatient (AMB) | payer OTHER, SELFPAY ==
[2024-06-25 14:14] VITALS: BP 142/80; PULSE 97; BMI 29.3
--- NOTE | 2024-06-25 14:14 | MHC.OFFVIS ---
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 He states that recently he woke up in the morning and noticed a discomfort in the front of the chest. It lasted for several hours and he came to the ER. There was no evidence of ACS. High sensitivity troponin x3 unremarkable. There was some variation of chest pain with breathing and not clear if it was rather pleuritic. Blood sugars were high. Subsequently, it seems he was discharged home. He has not had any further recurrence of chest pain. No exertional angina otherwise. Apart from the episode that day, no other concerns. History of diabetes and does not appear like well controlled as the sugars were in the 300s when he came to the ER. History of smoking. Also uses cocaine and most recently within the last few days. However, not clear if that contributed to the chest pain or not. [facility] Medical History (Updated 06/25/24 @ 15:12 by Alex Louis MD) Asthma Diabetes Family History (Updated 06/25/24 @ 14:30 by Alma Crawley) Mother Diabetes Father Diabetes Heart problem Social History (Updated 06/25/24 @ 14:32 by Alma Crawley) Alcohol intake: current Alcohol intake frequency: a few times a week Alcohol type: hard liquor Patient Tobacco Use Status: Current someday Tobacco user Tobacco use type: Cigarette Cigarette Packs Per Day: 1 Years Smoked: 333 Substance Use Type: Marijuana Review of Systems Const All systems reviewed & are unremarkable except as noted in HPI and below Reports as per HPI and Reports no additional complaints Eyes Reports as per HPI and Denies no additional complaints ENT Denies no additional complaints and Reports as per HPI Card Reports chest pain at rest, Reports palpitations and Denies dyspnea Resp Reports as per HPI, Denies no additional complaints and Denies dyspnea GI Reports as per HPI and Denies no additional complaints Reports no additional complaints and Reports as per HPI Musc Reports no additional complaints and Reports as per HPI Skin/Breast Reports system reviewed and no additional complaints, except as documented Neuro Reports no additional complaints and Reports as per HPI Psych Reports no additional complaints and Reports as per HPI Endo Reports palpitations Rosendo/Lymph Reports no additional complaints and Reports as per HPI Aller/Immun Reports no additional complaints and Reports as per HPI Physical Exam Vital Signs: Last Vital Signs Pulse 97 06/25/24 14:14 BP 142/80 H 06/25/24 14:14 BMI result Body Mass Index 29.3 Const General: comfortable and no acute distress Orientation/consciousness: patient oriented x3 HEENT Other: Unremarkable Head: Yes normal to inspection Neck Neck: Yes normal visual inspection Chest Chest palpation & inspection: normal inspection of the chest Resp Auscultation: clear to auscultation bilaterally Cardio Palpation: normal PMI Heart sounds: S1 normal heart sound present, S2 normal heart sound present, no gallops, no murmurs and no rubs GI Palpation (GI): Soft to palpation Back/Spine/Pelvis Other: unremarkable Skin General skin exam: no rashes or lesions noted Neuro General: patient oriented x3 Extrem General: Yes normal to inspection Psych Mental Status: mental status grossly normal Office Procedures EKG Details: EKG with underlying sinus rhythm at 97/Min; T inversions inferior leads and lateral nonspecific [place] [id number], Complete Assessment & Plan Assessment & Plan (1) Precordial chest pain: Code(s): R07.2 - Precordial pain Category: Medical (2) Diabetes: Code(s): E11.9 - Type 2 diabetes mellitus without complications Category: Medical (3) Smoker: Code(s): F17.200 - Nicotine dependence, unspecified, uncomplicated Category: Social Hx (4) Cocaine abuse: Code(s): F14.10 - Cocaine abuse, uncomplicated Category: Medical Plan Multiple cardiovascular risk factors including diabetes, possible hypertension, smoking, cocaine use, recent chest pain but negative troponins. Multiple sets of high sensitivity troponins within range. He needs further workup and we will plan on getting a coronary CTA and echocardiogram. Otherwise, mainly aggressive risk factor modification. Blood sugar was 360 when he came to the ER and we discussed about that. Needs to be adequately controlled. His blood pressure is also borderline high and not clear if he is hypertensive or not. May need meds in the future. Otherwise, smoking cessation, abstain from cocaine and we discussed about all these. Discussed with significant other. Follow-up after the above. Orders: Orders Basic Metabolic Panel Today R07.2 - Precordial pain CA echo transthoracic complete Today R07.2 - Precordial pain CT Cardiac Coronary Angio Today I25.10 - Atherosclerotic heart disease of [place] coronary artery without angina pectoris, R07.2 - Precordial pain Medications: Discontinued ondansetron Discontinued Reason: Patient no longer taking 4 mg PO Q8H PRN 20 tabs 0RF nausea and vomiting famotidine (Pepcid) Discontinued Reason: Patient no longer taking 20 mg PO DAILY PRN 30 tabs 0RF abdominal discomfort cyclobenzaprine Discontinued Reason: Patient no longer taking 10 mg PO TID PRN 14 tabs 0RF muscle spasm ibuprofen Discontinued Reason: Patient no longer taking 600 mg PO Q8H PRN 20 tabs 0RF pain doxycycline hyclate Discontinued Reason: Patient no longer taking 100 mg PO BID 7 days 14 tabs 0RF cephalexin Discontinued Reason: Patient no longer taking 500 mg PO QID 7 days 28 caps 0RF Coding Level of Care Code New Pt Level 4 (29432) Diagnoses Precordial chest pain R07.2 Diabetes E11.9 Smoker F17.200 Cocaine abuse F14.10 CPT Codes EKG - CPT: 90116-[id number], Complete ([id number])
--- OUTSIDE RECORDS SUMMARY | 2024-06-25 15:30 | XMS_ITS | Clinical Summary ---
Author Organization [facility] Address [address] [place] [address] Care Team Providers Care Conservation Officer Name Role Phone Unavailable Primary Care Provider Unavailabl e Source Comments PLEASE NOTE, if this patient is a minor, it may be UNLAWFUL to discuss sensitive information that is contained in these records (such as FAMILY PLANNING, MENTAL HEALTH or SUBSTANCE ABUSE) with the minor patient's parent or other person without the patient's specific authorization.[facility] Medications No known medications Active Problems No known active problems Social History Tobacco Use Types Packs/Day Years Used Date Smoking Tobacco: Never Assessed Social Connections Answer Date Recorded Connectedness 0 01/27/2024 Financial Resource Strain Answer Date R ecorded Financial Resource Strain 0 2022 Stress Answer Date Recorded Stress 0 04/01/2023 Physical Activity Answer Date Recorded Physical Activity 0 04/01/2023 Food Insecurity Answer Date Recorded Food 0 02/07/2024 Transportation Needs Answer Date Record ed Transportation 0 04/01/2023 Housing Stability Answer Date Recorded Housing 0 04/01/2023 Safety and Environment Answer Date Clifford rded Safety 0 04/01/2023 Utilities Answer Date Recorded Utilities 0 04/01/2023 Employment Answer Date Recorded Stress 0 01/27/2024 Sex and Gender Information Value Date Recorded Sex Assigned at Not on file Legal Sex Male 6:15 AM PDT Gender Identity Male 03/08/2023 6:24 AM PDT Sexual Orientation Not on file Last Filed Vital Signs Vital Sign Reading Time Taken Comments Blood Pressure 152/88 09/03/2023 2:00 PM EDT Pulse 100 09/03/2023 2:00 PM EDT Temperature - - Respiratory Rate - - Oxygen Saturation - - Inhaled Oxygen Concentration - - Weight - - Height - - Body Mass Index - - Plan of Treatment Health Maintenance Due Date Last Done Comments Dental Prophy 1969 Diabetes Screening 1969 Hepatitis C Screening 1969 Lipid Screening 1969 Tobacco Screening 1969 HIV Screening 1984 Annual Preventive Care Visit 11/06/1987 Imm-Hepatitis B (1 of 3 - 19 + 3-dose series) 1988 CT Colonography 2014 Colonoscopy 2014 Colorectal Cancer Screening 2014 FIT/gFOBT 2014 Fecal DNA 2014 Flexible Sigmoidoscopy 2014 Imm-Zoster, Recombinant (1 of 2) 11/06/2019 Imm-DTaP/Tdap/Td (2 - Td or Tdap) 07/19/2023 014 [id number] ( - season) 2024 05/02/2021, 09/02/2020, 08/03/2020 Imm-Influenza (#1) 2024 07/02/2018, 1 07/12/2015, 03/25/2015, Additional history exists Alcohol and Drug Screen 05/14/2024 Depression Annual Screen 05/14/2024 Dental BW 08/10/2024 08/09/2023 Dental Examination 08/10/2024 08/09/2023 Dental Perio Charting 08/10/2024 08/09/2023 Hypertension Screening (#1) 09/02/2024 Dental FMX/Pano 08/10/2028 08/09/2023 Procedures Procedure Name Priority Date/Time Associated Diagnosis Comments Full INTRAORAL - COMP SERIES OF RADIOGRAPHIC IMAGES Routine 08/09/2023 11:00 AM EDT Caries Full COMP ORAL EVALUATION - NEW/ESTABLISHED PATIENT Routine 08/09/2023 11:00 AM EDT Caries from Last 3 Months or Most Recently Relevant to Health Maintenance Insurance [place] MEDICAID [facility]
== END 2024-06-25 14:56 | disposition home or self-care (01) ==
PROVIDERS: PCP Nurse Practitioner Family; Visit Provider Internal Medicine
DX: R07.2 Precordial pain (principal); E11.9 Type 2 diabetes mellitus without complications; F17.200 Nicotine dependence, unspecified, uncomplicated; F14.10 Cocaine abuse, uncomplicated
CPT/HCPCS: 93010; 99214

== ENCOUNTER → 2024-06-25 14:07 | Outpatient (BNVA) | payer OTHER, SELFPAY | PROVIDERS: PCP Nurse Practitioner Family; Visit Provider Internal Medicine | DX: R07.2 Precordial pain (principal); E11.9 Type 2 diabetes mellitus without complications; F14.10 Cocaine abuse, uncomplicated; F17.210 Nicotine dependence, cigarettes, uncomplicated | CPT/HCPCS: 93005; 99212 ==

== ENCOUNTER → 2024-07-07 14:03 | Outpatient (REF) | payer OTHER, SELFPAY ==
--- NOTE | 2024-07-07 14:05 | CA_ITS ---
Transthoracic Echocardiogram Patient (Last, First, Middle): German Thorne L Gender: Male Date of : 1970 Age: 53 Procedure Date: 07/07/2024 Procedure Type: Transthoracic Echocardiogram Location: OP Height: 165.1 cm Weight: 75.75 kg BSA: 1.83 m2 Heart Rate: bpm BP: 130 / 82 mmHg Fruit I Farmworker: Referring MD: Alex Louis MD Symptoms: R07.2 - Precordial pain Study Quality: Good ECG Rhythm: Sinus Conclusions: - The left ventricular systolic function is mildly decreased. The visually estimated ejection fraction is between 45-50%. - No obvious valvular pathology seen on this study. Findings Left Ventricle Normal left ventricular cavity size. There is mildly increased left ventricular wall thickness. The left ventricular systolic function is mildly decreased. The visually estimated ejection fraction is between 45-50%. There is mild global hypokinesis. Evidence suggests grade I (mild) diastolic dysfunction. Right Ventricle Normal right ventricular cavity size. There is mildly decreased right ventricular systolic function. Atria Both atria are normal in size. Aortic Valve There is a normal trileaflet aortic valve. There is no aortic valve stenosis. There is no aortic valve regurgitation. Mitral Valve The mitral valve appears normal. There is trace mitral valve regurgitation. There is no mitral valve stenosis. Pulmonic Valve The pulmonic valve is likely normal. Tricuspid Valve There is trace tricuspid valve regurgitation. There is no evidence of pulmonary hypertension. Great Vessels The asc aorta is normal in size. Venous The inferior vena cava is normal in size and collapses greater than 50% with inspiration. Pericardium/Pleural There is no evidence of pericardial effusion. Prior Study Comparison No prior study available for comparison. Recommendations, Care & Conclusions No obvious valvular pathology seen on this study. Measurements 2D Linear Measurements IVSd: 1.21 0.6-0.9/0.6-1.0 cm LVIDd: 4.70 3.9-5.3/4.2-5.9 cm LVIDd Index: 2.57 2.4-3.2/2.2-3.1 cm/m2 LVIDs: 3.36 2.0-3.6 cm LVPWd: 1.22 0.7-1.1 cm Ao Root: 3.40 2.1-3.5 cm LA Diam: 3.30 2.7-3.8/3.0-4.0 cm LAIDs Index: 1.80 1.5-2.3 cm/m2 LV Mass: 268.99 67-162/88-224 g LV Mass Index: 146.99 43-95/49-115 g/m2 LVOT Diam: 2.20 3.0+(-)1.3 cm 2D Systolic Function EF 4C: 44.10 >55% EF 2C: 45.40 >55% EF BiP: 44.20 >55% Mitral Valve MV Pk E: 0.40 MV PK A: 0.78 MV Decel Time: 85.00 E/A: 0.50 E'Lateral: 5.33 E'Medial: 4.68 E/E' Med: 8.50 E/E' Lat: 7.50 PHT: 25.00 MVA PHT: 8.80 Decel Roberts: 4.72 Aortic Valve AoV Pk Dm: 1.39 AoV Mn Dm: 0.90 AoV VTI: 0.25 AoV Pk Grad: 8.00 Aov Mn Grad: 4.00 FARZANEH Cont.VTI: 2.74 LVOT LVOT Pk Dm: 0.80 LVOT Mn Dm: 0.49 LVOT VTI: 0.18 LVOT Pk Grad: 3.00 LVOT Mn Grad: 1.00 LVOT Diam: 2.20 LVOT Area: 3.80 Diastolic Function MV Pk E: 0.40 MV Pk A: 0.78 E/A: 0.50 E'Medial: 4.68 E/E' Med: 8.50 E' Laterial: 5.33 E/E' Lat: 7.50 Right Ventricle TAPSE (mm): 17.00 TVS' Dm: 9.00 Tricuspid Valve TR Pk Dm: 1.56 TR Pk Grad: 10.00 RA Press: 3.00 RVSP: 13.00 Great Vessels Aorta Ao Root-2D: 3.40 2.0-3.7 cm Ao Asc: 3.80 2.1-3.4 cm Pulmonary Valve PV Pk Dm: 0.98 Peak PV Grad: 4.00 Updated in Other Vendor System with Status of Final Alex Louis MD electronically signed on 07/07/2024 3:52:38 PM with status of Final
--- OUTSIDE RECORDS SUMMARY | 2024-07-07 16:12 | XMS_ITS | Clinical Summary ---
Author Organization [facility] Address [address] [place] [address] Care Team Providers Care Dovetailer Name Role Phone Unavailable Primary Care Provider [...] (2 - Td or Tdap) 07/19/2023 014 [id number] ( - season) 2024 05/02/2021, 09/02/2020, 08/03/2020 [...] Most Recently Relevant to Health Maintenance Insurance [place] [facility]
== END ==
LOC: HO.CARD 14:03
PROVIDERS: PCP Nurse Practitioner Family; Visit Provider Internal Medicine
DX: R07.2 Precordial pain (principal)
CPT/HCPCS: 93306

== ENCOUNTER → 2024-07-07 14:05 | Outpatient (BNV) | payer OTHER, SELFPAY | PROVIDERS: PCP Nurse Practitioner Family; Visit Provider Internal Medicine | DX: I51.89 Other ill-defined heart diseases (principal) | CPT/HCPCS: 93306 ==

== ENCOUNTER 2024-08-28 15:36 | Outpatient (REF) | payer OTHER, SELFPAY ==
[2024-08-28 16:19] LABS: Anion Gap 14 (12-20); Blood Urea Nitrogen 14 mg/dL (9-16); Calcium 10.1 mg/dL (8.4-10.2); Carbon Dioxide 27 mmol/L (22-29); Chloride 102 mmol/L (96-108); Estimated Glomerular Filt Rate > 60; Glucose Random 297 mg/dL (60-115); Potassium 4.3 mmol/L (3.3-5.1); Sodium 139 mmol/L (135-145)
--- OUTSIDE RECORDS SUMMARY | 2024-08-28 18:07 | XMS_ITS | Clinical Summary ---
Author Organization [facility] Address [address] [place] [address] Care Team Providers Care Property And Equipment Clerk Name Role Phone Unavailable Primary Care Provider [...] Health Maintenance Due Date Last Done Comments Anxiety Screening 1970 Dental Prophy 1970 Diabetes Screening 1970 Hepatitis C Screening 1970 Lipid Screening 1970 Tobacco Screening 1970 HIV Screening 1984 Imm-Hepatitis B (1 of 3 - 19 + 3-dose series) 1988 CT Colonography 2014 Colonoscopy 2014 Colorectal Cancer Screening 2014 FIT/gFOBT 2014 Fecal DNA 2014 Flexible Sigmoidoscopy 2014 Imm-Zoster, Recombinant (1 of 2) 11/06/2019 Imm-DTaP/Tdap/Td (2 - Td or Tdap) 07/19/2023 014 [id number] ( season) 2024 05/02/2021, 09/02/2020, 08/03/2020 Imm-Influenza (#1) [...] Most Recently Relevant to Health Maintenance Insurance [place] [facility]
== END 2024-08-28 15:37 | disposition home or self-care (01) ==
LOC: HO.LAB 15:36
PROVIDERS: PCP Nurse Practitioner Family; Visit Provider Internal Medicine
DX: R07.2 Precordial pain (principal)
CPT/HCPCS: 36415; 80048

== ENCOUNTER 2024-10-30 15:46 | Emergency (ER) | payer OTHER, SELFPAY ==
[2024-10-30 16:08] VITALS: BP 147/80; PULSE 115; RESP 16; TEMP 36.8; O2SAT 98; BMI 32.8
--- NOTE | 2024-10-30 16:09 | ED.GENADULT ---
HPI - General Adult General Chief complaint: General Medical Stated complaint: Groin pain Time Seen by Provider: 10/30/24 20:49 Source: patient Mode of arrival: ambulatory Limitations: no limitations History of Present Illness ED Provider: HPI narrative: Patient complaining of Pain in left groin area for last 4 weeks apparently was taking heavy would on the stairs about 4 weeks ago since then pain started next day no hernia no nausea no vomiting pain increases on flexion of the thighs Related Data Home Medications ?Medication ?Instructions ?Recorded ?Confirmed albuterol sulfate 90 mcg/actuation inhalation 06/25/24 06/25/24 aerosol inhaler (Ventolin HFA) dapagliflozin propanediol 5 mg mg PO DAILY 06/25/24 06/25/24 tablet (Farxiga) glipizide 10 mg tablet 10 mg PO BID 06/25/24 06/25/24 metformin 500 mg tablet,extended mg PO 06/25/24 06/25/24 release 24 hr naproxen 500 mg tablet 500 mg PO BID 06/25/24 06/25/24 omeprazole 20 mg capsule,delayed 20 mg PO DAILY 06/25/24 06/25/24 release sitagliptin phosphate 100 mg 100 mg PO DAILY 06/25/24 06/25/24 tablet (Januvia) Previous Rx's ?Medication ?Instructions ?Recorded cyclobenzaprine 10 mg tablet 10 mg PO Q8H #20 tabs 10/30/24 oxycodone 5 mg tablet 5 mg PO Q6H PRN pain #20 tabs 10/30/24 Allergies Allergy/AdvReac Type Severity Reaction Status Date / Time No Known Allergies Allergy Verified 10/30/24 16:10 Review of Systems Review of Systems: Yes all other systems are reviewed and are negative [facility] Past Medical History Medical History Asthma Diabetes Family History Family History Mother Diabetes Father Diabetes Heart problem Social History Social History Alcohol intake: current Alcohol intake frequency: a few times a week Alcohol type: hard liquor Patient Tobacco Use Status: Current someday Tobacco user Tobacco use type: Cigarette Cigarette Packs Per Day: 1 Years Smoked: 333 Smoked in Last 30 Days: Yes Use of substances other than those prescribed or required for medical reasons: Yes Substance Use Type: Crack/Cocaine Substance Use Frequency: Occasionally Advance Directives: No Advance Directives Information Provided: No Do you have a plan to hurt others: No Plan Physical Exam ED Vital Signs: Vital Signs - 24 hr 10/30/24 16:08 10/30/24 21:49 10/30/24 22:54 Temperature 98.3 F 98.0 F 98.0 F Pulse Rate 115 H 87 87 Respiratory Rate 16 16 16 Blood Pressure 147/80 H 143/91 H 143/91 H Pulse Oximetry 98 96 96 Oxygen Delivery Method Room Air Room Air Room Air BMI result Body Mass Index 32.8 Appearance: Alert. Oriented X3. No acute distress. Eyes: PERRLA, No Nystagmus ENT: Pharynx normal. Oral Mucosa moist Neck: Normal inspection. Neck supple. CVS: Normal heart rate and rhythm. Pulses normal. Respiratory: No respiratory distress. Equal air entry bilateral, no wheezing/rales/rhonchi Abdomen: Soft and nontender. Bowel sounds are present, no mass palpable, no CVA tenderness Skin: Skin warm and dry. Normal skin color. Normal skin turgor. Extremities: No lower extremity edema. No calf tenderness tenderness in the left groin area pain increases on hip flexion and adduction no mass palpable : Normal testicle no hydrocele nontender no hernia Neuro: Oriented X 3. No motor deficit. No sensory deficit.No cerebellar signs , cranial nerves II-XII intact Course Course Course Narrative: 10/30/24 1610 JEAN-PAUL Nation This is a Rapid Medical Examination (RME) performed by Eran Manzano PA-C in triage. Full HPI, ROS, assessment and treatment plan per primary provider in the Main ED. Hx: 53 yo M s/p right inguinal hernia repair here w/ L inguinal groin pain intermittent x1 mo. pain worsened after heavy lifting at work. Pain worse with coughing, standing. States this feels similar to previous hernia. PE/vitals: Area not evaluated from triage due to privacy concerns Plan: Basic labs, will defer imaging to primary provider Medications Administered Discontinued Medications Generic Name Dose Route Start Last Admin Trade Name Freq PRN Reason Stop Dose Admin Insulin Glargine 20 unit 10/30/24 21:05 10/30/24 21:21 Insulin Glargine,Hum.Rec.Anlog 100 Unit/Ml 10 Ml Vial SUBCUT 10/30/24 21:06 20 unit ONCE ONE Administration Insulin Human Lispro 14 unit 10/30/24 21:05 10/30/24 21:21 Insulin Lispro 100 Unit/Ml 3 Ml Vial SUBCUT 10/30/24 21:06 14 unit ONCE ONE Administration Morphine Sulfate 15 mg 10/30/24 21:07 10/30/24 21:21 Morphine Sulfate Immed Release 15 Mg Tablet PO 10/30/24 21:08 15 mg ONCE ONE Administration Medical Decision Making Medical Decision Making [facility] Narrative: Patient clinically with left groin strain from lifting heavy weight 4 weeks ago no hernial sac palpable no testicular pain was given pain medication muscle relaxant Lab Data [facility] Lab Attestation statement: I reviewed the patient's lab results. 10/30/24 17:12 10/30/24 17:12 Labs: Lab Results 10/30/24 10/30/24 10/30/24 Range/Units 17:12 21:13 22:22 WBC 8.5 (4.8-10.8) X10*3/uL RBC 5.15 (4.60-5.80) X10*6/uL Hgb 16.4 (14.0-18.0) g/dl Hct 46.5 (42.0-52.0) % MCV 90.3 (80.0-98.0) fL MCH 31.8 (27.0-33.0) pg MCHC 35.3 (31.0-36.0) g/dl RDW 11.2 (11.0-16.0) % Plt Count 184 (160-400) X10*3/uL MPV 11.3 (9.4-12.4) fL Immature Gran % (Auto) 0.4 (0.0-0.4) % Neut % (Auto) 71.0 (45-73) % Lymph % (Auto) 19.4 L (20-40) % Pinal % (Auto) 7.4 (2-11) % Eos % (Auto) 1.2 (0-4) % Baso % (Auto) 0.6 (0-2) % Lymph # (Auto) 1.7 (1.2-4.9) X10*3/uL Pinal # (Auto) 0.6 (0.1-1.2) X10*3/uL Eos # (Auto) 0.1 (0.0-0.4) X10*3/uL Baso # (Auto) 0.1 (0.0-0.2) X10*3/uL Abs Immat Gran (auto) 0.03 (0.00-0.03) X10*3/uL Absolute Neuts (auto) 6.1 (2.0-8.3) x10*3/uL Absolute Nucleated RBC 0.000 (0.0-0.012) X10*3/uL Nucleated RBC % (auto) 0.0 (0.0-0.2) /100WBC Sodium 133 L (135-145) mmol/L Potassium 4.2 (3.3-5.1) mmol/L Chloride 99 (96-108) mmol/L Carbon Dioxide 24 (22-29) mmol/L Anion Gap 14 (12-20) BUN 19 H (9-16) mg/dL Creatinine 0.85 (0.5-1.4) mg/dL Estim Creat Clear Calc 102.0 Estimated GFR > 60 POC Glucose 430 H* 332 H (60-115) mg/dL Random Glucose 465 H* (60-115) mg/dL Calcium 9.7 (8.4-10.2) mg/dL Total Bilirubin 0.4 (0.0-1.0) mg/dL AST 21 (5-37) U/L ALT 26 (0-40) U/L Alkaline Phosphatase 96 (39-117) U/L Total Protein 7.3 (6.5-8.0) g/dL Albumin 4.4 (3.5-5.0) g/dL Discharge Plan Discharge Clinical Impression: Diabetes, Strain of left groin Patient Disposition: Home, Self-Care Instructions: Groin Strain (ED), Diabetic Hyperglycemia (ED) Additional Instructions: Drink plenty of fluids Take your diabetic medication as prescribed Pain medication muscle relaxant as prescribed Likely you have grand muscle strain which should get better with time Report to the ER if noticed worsening of the pain Prescriptions: New oxycodone 5 mg tablet 5 mg PO Q6H PRN (Reason: pain) Qty: 20 0RF Rx Instructions: Partial Fill upon patient request. cyclobenzaprine 10 mg tablet 10 mg PO Q8H Qty: 20 0RF No Action dapagliflozin propanediol [Farxiga] 5 mg tablet PO DAILY glipizide 10 mg tablet 10 mg PO BID metformin 500 mg tablet extended release 24 hr PO albuterol sulfate [Ventolin HFA] 90 mcg/actuation HFA aerosol inhaler inhalation naproxen 500 mg tablet 500 mg PO BID omeprazole 20 mg capsule,delayed release(DR/EC) 20 mg PO DAILY Januvia 100 mg tablet 100 mg PO DAILY Interventions: ED Discharge Assessment Last Done: 10/30/24 22:54 Discharge Date/Time: 10/30/24 22:54 Print Language: Persian
[2024-10-30 17:16] LABS: MANUAL DIFF FLAG NO
[2024-10-30 17:17] LABS: Basophils Absolute Auto 0.1 X10*3/uL (0.0-0.2); Basophils Percent Auto 0.6 % (0-2); Eosinophils Absolute Auto 0.1 X10*3/uL (0.0-0.4); Eosinophils Percent Auto 1.2 % (0-4); Hematocrit 46.5 % (42.0-52.0); Hemoglobin 16.4 g/dl (14.0-18.0); Imm Gran Abs Auto 0.03 X10*3/uL (0.00-0.03); Imm Gran Pct Auto 0.4 % (0.0-0.4); Lymphocytes Absolute Auto 1.7 X10*3/uL (1.2-4.9); Lymphocytes Percent Auto 19.4 % (20-40); Mean Corpuscular HGB Conc 35.3 g/dl (31.0-36.0); Mean Corpuscular Hemoglobin 31.8 pg (27.0-33.0); Mean Corpuscular Volume 90.3 fL (80.0-98.0); Mean Platelet Volume 11.3 fL (9.4-12.4); Monocytes Absolute Auto 0.6 X10*3/uL (0.1-1.2); Monocytes Percent Auto 7.4 % (2-11); Neutrophils Absolute Auto 6.1 x10*3/uL (2.0-8.3); Platelet Count 184 X10*3/uL (160-400); Red Blood Count 5.15 X10*6/uL (4.60-5.80); Red Cell Distribution Width 11.2 % (11.0-16.0); White Blood Count 8.5 X10*3/uL (4.8-10.8)
[2024-10-30 17:41] LABS: Alanine Aminotransferase 26 U/L (0-40); Albumin Level 4.4 g/dL (3.5-5.0); Alkaline Phosphatase 96 U/L (39-117); Anion Gap 14 (12-20); Aspartate Amino Transferase 21 U/L (5-37); Bilirubin Total 0.4 mg/dL (0.0-1.0); Blood Urea Nitrogen 19 mg/dL (9-16); Calcium 9.7 mg/dL (8.4-10.2); Carbon Dioxide 24 mmol/L (22-29); Chloride 99 mmol/L (96-108); Estimated Glomerular Filt Rate > 60; Glucose Random 465 mg/dL (60-115); Potassium 4.2 mmol/L (3.3-5.1); Sodium 133 mmol/L (135-145); Total Protein 7.3 g/dL (6.5-8.0)
[2024-10-30 21:17] LABS: Glucose, Whole Blood 430 mg/dL (60-115)
[2024-10-30] MEDS: Insulin Lispro 100 UNIT/ML 3 ML VIAL 14 UNIT SUBCUT (21:21)
[2024-10-30] MEDS: Morphine Sulfate Immed Release 15 MG TABLET PO (21:21)
[2024-10-30] MEDS: Insulin Glargine,Hum.rec.anlog 100 UNIT/ML 10 ML VIAL 20 UNIT SUBCUT (21:21)
[2024-10-30 21:49] VITALS: BP 143/91; PULSE 87; RESP 16; TEMP 36.7; O2SAT 96
[2024-10-30 22:25] LABS: Glucose, Whole Blood 332 mg/dL (60-115)
[2024-10-30 22:54] VITALS: BP 143/91; PULSE 87; RESP 16; TEMP 36.7; O2SAT 96
== END 2024-10-30 22:54 | disposition home or self-care (01) ==
PROVIDERS: Physician Assistant Medical; Emergency Provider Internal Medicine; PCP Internal Medicine
DX: S39.011A Strain of muscle, fascia and tendon of abdomen, initial encounter (principal); R10.32 Left lower quadrant pain; F17.210 Nicotine dependence, cigarettes, uncomplicated; X50.0XXA Overexertion from strenuous movement or load, initial encounter; X50.3XXA Overexertion from repetitive movements, initial encounter; Y93.9 Activity, unspecified; Y92.9 Unspecified place or not applicable; Y99.8 Other external cause status
CPT/HCPCS: 36415; 80053; 82947; 85025; 99283; 99284

== ENCOUNTER 2025-03-25 16:46 | Emergency (ER) | payer OTHER, SELFPAY ==
--- NOTE | ~2025-03-25 | XR_ITS ---
CLINICAL HISTORY: infection btwn 1 2 digits, diabetic Radiographs of the left hand, 3 views Comparison: None available Findings: No fracture or dislocation. No cortical destruction or periostitis to indicate osteomyelitis. Mild to moderate degenerative change most prominent at the 1st interphalangeal joint. Soft tissue swelling. Impression: No radiographic evidence of osteomyelitis. Follow up if symptoms persist or worsen. This document has been electronically signed by: Jayla Hartman MD on 03/25/2025 18:30:11
[2025-03-25 16:50] VITALS: BP 170/83; PULSE 114; RESP 18; TEMP 36.4; O2SAT 97; BMI 29.9
--- NOTE | 2025-03-25 16:51 | ED.GENADULT ---
HPI - General Adult General Chief complaint: Extremity Problem Stated complaint: left hand injury Time Seen by Provider: 03/25/25 17:29 History of Present Illness ED Provider: tiarra FAYE narrative: Date & Time: 2025-03-25 Patient Name: Zhane HURTADO: MRN: Author / Clinician: Everett Langley MD (Emergency Medicine) Chief Complaint Right hand pain, redness, and swelling. History of Present Illness The patient reports that on Sunday he sustained a splinter from a 2 ? 4 board to the web space between the right thumb and index finger. The splinter was removed, but by Sunday night the area became red and painful. Since then, swelling has progressed to involve the entire hand, and the patient feels as though the swelling/pain is ?coming up the arm.? He denies fevers, chills, or night sweats. No prior similar infections. No other injuries or areas of redness/infection noted. Past medical history is significant for diabetes mellitus. No other chronic medical problems reported. The patient reports taking ibuprofen for pain at home, but states it knocks me out. Review of Systems - General: Denies fever, chills, night sweats. - Cardiovascular/Respiratory: Denies chest pain or difficulty breathing. - Gastrointestinal: Denies abdominal pain. - Neurologic: Denies headache. - Musculoskeletal/Integumentary: Positive for right hand pain, redness, and swelling extending from the web space between thumb and index finger; denies other joint pain. Physical Examination Vital Signs: Measure Value ----- _Vital signs not yet recorded in ED_ Physical Exam: - Appearance: Alert, in mild distress due to hand pain. - Right Hand: Marked swelling and erythema of the web space between thumb and index finger, extending across dorsum of hand. No palmar swelling. Digits well-perfused with normal color and capillary refill. Wrist demonstrates full range of motion without pain. - Forearm: No streaking erythema; compartments soft, nontender. - Neurovascular: Sensation intact distally; pulses palpable. Emergency Department Course Ordered right hand X-ray and basic laboratory studies. Bedside ultrasound planned to evaluate for retained foreign body or drainable collection. Empiric antibiotics initiated. Assessment & Plan Diagnosis: Right hand cellulitis/soft-tissue infection following splinter injury in the setting of diabetes mellitus. Plan: - Imaging: Right hand X-ray to assess for foreign body or bony involvement. - Laboratory studies: ordered. - Bedside ultrasound to evaluate for abscess or retained foreign body; proceed with drainage if indicated. - Empiric antibiotics initiated. - Pain control as needed. - Admission may be considered if abscess is identified or clinical status worsens. Disposition Patient remains in the Emergency Department for completion of imaging, labs, and further evaluation. Related Data Home Medications ?Medication ?Instructions ?Recorded ?Confirmed albuterol sulfate 90 mcg/actuation inhalation 06/25/24 06/25/24 aerosol inhaler (Ventolin HFA) dapagliflozin propanediol 5 mg mg PO DAILY 06/25/24 06/25/24 tablet (Farxiga) glipizide 10 mg tablet 10 mg PO BID 06/25/24 06/25/24 metformin 500 mg tablet,extended mg PO 06/25/24 06/25/24 release 24 hr naproxen 500 mg tablet 500 mg PO BID 06/25/24 06/25/24 omeprazole 20 mg capsule,delayed 20 mg PO DAILY 06/25/24 06/25/24 release sitagliptin phosphate 100 mg 100 mg PO DAILY 06/25/24 06/25/24 tablet (Januvia) Previous Rx's ?Medication ?Instructions ?Recorded cyclobenzaprine 10 mg tablet 10 mg PO TID PRN muscle spasm #14 10/31/24 tabs oxycodone 5 mg tablet 5 mg PO Q6H PRN pain #14 tabs 10/31/24 cefadroxil 500 mg capsule 500 mg PO BID 7 days #14 caps 03/25/25 sulfamethoxazole 800 1 tab PO Q12H 5 days #10 tabs 03/25/25 mg-trimethoprim 160 mg tablet (Bactrim DS) Allergies Allergy/AdvReac Type Severity Reaction Status Date / Time No Known Allergies Allergy Verified 03/25/25 16:52 [facility] Past Medical History Medical History Asthma Diabetes Family History Family History Mother Diabetes Father Diabetes Heart problem Social History Social History Alcohol intake: current Alcohol intake frequency: a few times a week Alcohol type: hard liquor Patient Tobacco Use Status: Current someday Tobacco user Tobacco use type: Cigarette Cigarette Packs Per Day: 1 Years Smoked: 333 Substance Use Type: Crack/Cocaine Advance Directives: No Advance Directives Information Provided: No Do you have a plan to hurt others: No Plan Physical Exam ED Exam Exam: Vital Signs: Vital Signs - 24 hr 03/25/25 16:50 03/25/25 18:03 03/25/25 19:35 Temperature 97.6 F 98.1 F 98.1 F Pulse Rate 114 H 96 96 Respiratory Rate 18 16 16 Blood Pressure 170/83 H 157/77 H 157/77 H Pulse Oximetry 97 97 97 Oxygen Delivery Method Room Air Room Air Room Air BMI result Body Mass Index 29.9 Course Course Course Narrative: This is a Rapid Medical Examination (RME) performed by Eran Manzano PA-C in triage. Full HPI, ROS, assessment and treatment plan per primary provider in the Main ED. Hx: 54 yo right hand dominant male here w/ concerns of infection to L hand. reports building something at home on Sunday, got a splinter in the webbed space between the L 1st and 2nd digits. he attempted to remove the splinter and felt that he removed the entire thing. since then, the area has become red, swollen and painful. difficulty bending the left thumb. pain extending into left forearm. patient is diabetic. PE/vitals: noted swelling/erythema to webbed space between L 1st/2nd digit, ttp, no streaking up LUE. difficulty flexing at 1st MCP. no erythema along tendon sheaths. Plan: labs, xr Reevaluation(s) Reevaluation #1: 7:12 PM 03/25/2025 (Dr. Everett Langley): After incision and drainage and review of the x-ray without findings of gas and no systemic symptoms I think it is reasonable to discharge this patient after effective incision and drainage home with oral antibiotics. Two day wound follow up either here or urgent care for packing removal and wound assessment Medications Administered Discontinued Medications Generic Name Dose Route Start Last Admin Trade Name Freq PRN Reason Stop Dose Admin Ceftriaxone Sodium 2 gm/ 50 mls @ 100 mls/hr 03/25/25 17:46 03/25/25 18:37 Sodium Chloride IV 03/25/25 18:15 Infused ONCE ONE Infusion Ketorolac Tromethamine 15 mg 03/25/25 17:46 03/25/25 18:08 Ketorolac Tromethamine 15 Mg/Ml Vial IVPUSH 03/25/25 17:47 15 mg ONCE ONE Administration Lidocaine/Epinephrine 10 ml 03/25/25 18:17 03/25/25 18:38 Lidocaine Hcl 2%/Epi 1:100,000 20 Ml Vial INFILTRATI 03/25/25 18:18 10 ml ONCE ONE Administration Oxycodone HCl 5 mg 03/25/25 17:46 03/25/25 18:07 Oxycodone Hcl Immed Release 5 Mg Tablet PO 03/25/25 17:47 5 mg ONCE ONE Administration Trimethoprim/Sulfamethoxazole 1 tab 03/25/25 17:46 03/25/25 18:07 Sulfamethox/Trimeth 800/160 Tablet PO 03/25/25 17:47 1 tab ONCE ONE Administration Procedures Procedure Narrative Procedure Narrative: EMERGENCY ULTRASOUND INTERPRETATION- Limited skin and soft tissue [This study was ordered, performed, and interpreted by myself. The study reveals: Impression: ?Small abscess approximately 1 x 1 x 1 cm left thenar webspace Indication: ?Redness and swelling Skin: Abscess Performed by: ?Everett Langley MD ?Images were stored __ Nerve Block Procedure: Indication: Anesthesia/Analgesia for the affected area. Performed by: Everett Langley MD Approximate Time: A left mid forearm median nerve block was performed. After explanation of the risks, benefits, and alternatives verbal consent was obtained A neurologic exam was conducted including motor and/or sensory testing of the brachial plexus, There were no deficits. Extremity compartments were soft. The area of injection was prepped with chlorhexidine. A 20 gauge, 1.5 in in length needle was used. Ultrasound guidance with real-time visualization of the needle tip was utilized throughout the procedure. In-plane approach was used to visualize needle tip. Images were saved. Approximately 10ml of, Lidocaine with epinephrine was injected near the nerve structure or plane. Local anesthetic gradually injected ?in small aliquots of 3-5ml following negative aspiration. There was no complication ?during the procedure. There were no signs of local anesthetic toxicity. There were no other complications. Patient tolerated the procedure. ??Following the procedure, the blocked extremity was protected or positioned to prevent injury. Ulnar/Radial/Median:[id number]; [id number] ____ Procedure: Incision and Drainage Performed by: Everett Langley MD Indication: Abscess left hand Anesthesia was obtained with nerve block as above]. The area was prepped in the usual sterile fashion. A number 11 scalpel was used to create an incision. Return was to ml of purulent fluid. The abscess was probed. Loculations or broken up. The site was packed with iodoform. Ultrasound guidance was needed. A dressing was placed over the site. The patient tolerated the procedure well. Wound care instructions were given. ? Post-Procedure Diagnosis: same as indication ? Complications: none Estimated Blood Loss:? minimal Specimens Removed: no Prosthetic devices/implants: no Tong Hooker(s): none CPT: 15604; 92176 (US-Guided) Medical Decision Making Lab Data 03/25/25 17:27 03/25/25 17:27 Labs: Lab Results 03/25/25 Range/Units 17:27 WBC 8.7 (4.8-10.8) X10*3/uL RBC 4.85 (4.60-5.80) X10*6/uL Hgb 15.0 (14.0-18.0) g/dl Hct 43.9 (42.0-52.0) % MCV 90.5 (80.0-98.0) fL MCH 30.9 (27.0-33.0) pg MCHC 34.2 (31.0-36.0) g/dl RDW 11.9 (11.0-16.0) % Plt Count 168 (160-400) X10*3/uL MPV 10.8 (9.4-12.4) fL Immature Gran % (Auto) 0.5 H (0.0-0.4) % Neut % (Auto) 75.4 H (45-73) % Lymph % (Auto) 14.9 L (20-40) % Creek % (Auto) 7.8 (2-11) % Eos % (Auto) 0.9 (0-4) % Baso % (Auto) 0.5 (0-2) % Lymph # (Auto) 1.3 (1.2-4.9) X10*3/uL Creek # (Auto) 0.7 (0.1-1.2) X10*3/uL Eos # (Auto) 0.1 (0.0-0.4) X10*3/uL Baso # (Auto) 0.0 (0.0-0.2) X10*3/uL Abs Immat Gran (auto) 0.04 H (0.00-0.03) X10*3/uL Absolute Neuts (auto) 6.5 (2.0-8.3) x10*3/uL Absolute Nucleated RBC 0.000 (0.0-0.012) X10*3/uL Nucleated RBC % (auto) 0.0 (0.0-0.2) /100WBC ESR 20 H (0-15) MM/HR Sodium 134 L (135-145) mmol/L Potassium 4.4 (3.3-5.1) mmol/L Chloride 98 (96-108) mmol/L Carbon Dioxide 28 (22-29) mmol/L Anion Gap 12 (12-20) BUN 18 H (9-16) mg/dL Creatinine 0.80 (0.5-1.4) mg/dL Estim Creat Clear Calc 102.5 Estimated GFR > 60 Random Glucose 434 H* (60-115) mg/dL Calcium 10.7 H D (8.4-10.2) mg/dL Magnesium 2.1 (1.6-2.6) mg/dL Total Bilirubin 0.3 (0.0-1.0) mg/dL AST 17 (5-37) U/L ALT 18 (0-40) U/L Alkaline Phosphatase 117 (39-117) U/L C-Reactive Protein 3.47 H (< or = 0.50) mg/dL Total Protein 7.3 (6.5-8.0) g/dL Albumin 4.4 (3.5-5.0) g/dL Discharge Plan Discharge Clinical Impression: Abscess of hand Patient Disposition: Home, Self-Care Instructions: Abscess Follow-up (ED), Abscess Incision and Drainage (DC) Additional Instructions: DISCHARGE DIAGNOSES: Abscess of the left hand, incision and drainage performed HISTORY OF PRESENTATION: ?Several days of worsening swelling and redness of the left hand EMERGENCY DEPARTMENT COURSE,TESTS, TREATMENTS: While in the ED today you had an x-ray that showed no severe complications of the infection. You had an ultrasound which showed an abscess and subsequently the abscess was drained with incision and drainage after a median nerve block in your forearm was performed to provide anesthesia. Culture of the wound was sent to the lab and is pending growth. Your lab work showed signs of inflammation but you had no systemic signs and you were given intravenous antibiotic ceftriaxone and oral antibiotic Bactrim and you will be sent home on prescription of the antibiotics DISCHARGE MEDICATIONS: ?Cefadroxil and Bactrim take as prescribed do not miss any doses, recommend taking with probiotic or yogurt daily FOLLOW-UP: ?Call your primary or general physician soon as possible to discuss your symptoms, your ED visit and to discuss follow up plans Two day follow up in urgent care or he back at ER for wound care and packing removal INSTRUCTIONS ?& RETURN PRECAUTIONS: If any symptoms change first call your primary physician, if it is after-hours your primary doctors office should have a provider workers compensation legal secretary you can speak with. If the symptoms are severe or very concerning to you then call 911 or return to the ED. Return if you develop high fevers streaking redness up your arm severe worsening pain or other symptoms as we described Everett Langley MD Emergency Physician [facility] Prescriptions: New sulfamethoxazole-trimethoprim [Bactrim DS] 800-160 mg tablet 1 tab PO Q12H 5 Days Qty: 10 0RF cefadroxil 500 mg capsule 500 mg PO BID 7 Days Qty: 14 0RF No Action cyclobenzaprine 10 mg tablet 10 mg PO TID PRN (Reason: muscle spasm) Qty: 14 0RF oxycodone 5 mg tablet 5 mg PO Q6H PRN (Reason: pain) Qty: 14 0RF Rx Instructions: Partial Fill upon patient request. dapagliflozin propanediol [Farxiga] 5 mg tablet PO DAILY glipizide 10 mg tablet 10 mg PO BID metformin 500 mg tablet extended release 24 hr PO albuterol sulfate [Ventolin HFA] 90 mcg/actuation HFA aerosol inhaler inhalation naproxen 500 mg tablet 500 mg PO BID omeprazole 20 mg capsule,delayed release(DR/EC) 20 mg PO DAILY Januvia 100 mg tablet 100 mg PO DAILY Stand Alone Forms: Work/School Release Interventions: ED Discharge Assessment Last Done: 03/25/25 19:35 Discharge Date/Time: 03/25/25 19:36 Print Language: Andorran
[2025-03-25 17:31] LABS: MANUAL DIFF FLAG NO
[2025-03-25 17:33] LABS: Hematocrit 43.9 % (42.0-52.0); Hemoglobin 15.0 g/dl (14.0-18.0); Imm Gran Abs Auto 0.04 X10*3/uL (0.00-0.03); Imm Gran Pct Auto 0.5 % (0.0-0.4); Lymphocytes Absolute Auto 1.3 X10*3/uL (1.2-4.9); Mean Corpuscular HGB Conc 34.2 g/dl (31.0-36.0); Mean Corpuscular Hemoglobin 30.9 pg (27.0-33.0); Mean Corpuscular Volume 90.5 fL (80.0-98.0); NRBC Abs Auto 0.000 X10*3/uL (0.0-0.012); NRBC Pct Auto 0.0 /100WBC (0.0-0.2); Platelet Count 168 X10*3/uL (160-400); Red Blood Count 4.85 X10*6/uL (4.60-5.80); White Blood Count 8.7 X10*3/uL (4.8-10.8)
[2025-03-25 17:53] LABS: Alanine Aminotransferase 18 U/L (0-40); Albumin Level 4.4 g/dL (3.5-5.0); Alkaline Phosphatase 117 U/L (39-117); Anion Gap 12 (12-20); Aspartate Amino Transferase 17 U/L (5-37); Blood Urea Nitrogen 18 mg/dL (9-16); Calcium 10.7 mg/dL (8.4-10.2); Carbon Dioxide 28 mmol/L (22-29); Chloride 98 mmol/L (96-108); Creatinine Clr Calc Pharmacy 102.5; Estimated Glomerular Filt Rate > 60; Magnesium 2.1 mg/dL (1.6-2.6); Potassium 4.4 mmol/L (3.3-5.1); Sodium 134 mmol/L (135-145); Total Protein 7.3 g/dL (6.5-8.0)
[2025-03-25 18:03] VITALS: BP 157/77; PULSE 96; RESP 16; TEMP 36.7; O2SAT 97
[2025-03-25] MEDS: Sulfamethox/Trimeth 800/160 TABLET 1 TAB PO (18:07)
[2025-03-25] MEDS: oxyCODONE HCl Immed Release 5 MG TABLET PO (18:07)
[2025-03-25 18:17] LABS: Erythrocyte Sedimentation Rate 20 MM/HR (0-15)
[2025-03-25] MEDS: Lidocaine HCl 2%/Epi 1:100,000 20 ML VIAL 10 ML INFILTRATI (18:38)
[2025-03-25 19:35] VITALS: BP 157/77; PULSE 96; RESP 16; TEMP 36.7; O2SAT 97
== END 2025-03-25 19:36 | disposition home or self-care (01) ==
PROVIDERS: Physician Assistant Medical; Emergency Provider Emergency Medicine; PCP Nurse Practitioner Family
DX: L02.512 Cutaneous abscess of left hand (principal); E11.9 Type 2 diabetes mellitus without complications
CPT/HCPCS: 10060; 10160; 36415; 64450; 73130; 76942; 80053; 83735; 85025; 85652; 86140; 87070; 87147; 87205; 96365; 96375; 99284; J0696; J1885; J2004

== ENCOUNTER → 2025-03-25 16:54 | Outpatient (BNV) | payer OTHER, SELFPAY | PROVIDERS: Emergency Provider Emergency Medicine; PCP Nurse Practitioner Family; Visit Provider Radiology Diagnostic Radiology | DX: L02.512 Cutaneous abscess of left hand (principal); E11.9 Type 2 diabetes mellitus without complications | CPT/HCPCS: 73130 ==

== ENCOUNTER 2025-04-17 14:17 | Emergency (ER) | payer OTHER, SELFPAY ==
--- NOTE | ~2025-04-17 | XR_ITS ---
EXAMINATION: XR HAND, LEFT CLINICAL INFORMATION: pain, injury COMPARISON: March 25, 2025 TECHNIQUE: PA, lateral, and oblique views of the left hand. FINDINGS: There are marginal osteophytes on the ulnar side of the IP joint of the thumb without joint space narrowing. No other significant degenerative changes are identified. No fracture is evident. There is no joint diastases or malalignment. XR/XR hand LT min 3V IMPRESSION: No acute bony abnormality. Mild osteoarthritis IP joint of thumb. Electronically signed by: Jayant Schneider MD 04/17/2025 02:50 PM EST
[2025-04-17 14:22] VITALS: BP 196/87; PULSE 107; RESP 18; TEMP 36.9; O2SAT 99; BMI 28.8
--- NOTE | 2025-04-17 14:22 | ED_ITS ---
HPI - General Adult General Chief complaint: Skin/Abscess/Foreign Body Stated complaint: open wound Time Seen by Provider: 04/17/25 17:13 Source: patient, family, RN notes reviewed and old records reviewed Mode of arrival: ambulatory Limitations: no limitations History of Present Illness ED Provider: Radha Antonio PA-C HPI narrative: The patient sustained a splinter injury to the left hand approximately five weeks ago while moving 2?4 lumber for her sister (not work-related). Three weeks ago the wound became infected; Dr. Floyd performed an incision and drainage (I&D) with placement of yellow gauze packing. Two days later the patient went to urgent care where a repeat procedure was done. The urgent care provider specifically instructed the patient not to remove the packing, which led to the packing remaining in place for approximately three weeks until it adhered to the bandage and was removed at home. Current concerns include a persistent ?hole? 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 She reports: * No current pain. * No fevers. * Swelling markedly improved, though mild residual swelling remains. Home care to date: kept the hand covered, minimized getting it wet, occasional rinsing in the shower, no soaps or cleansers used. Last antibiotic course completed two weeks ago. Past Medical History: Type 2 diabetes mellitus. Medications (not currently taking; left at home while staying with sister): metformin, Januvia, glipizide. Social/Functional: Right-hand dominant; construction services technician. Related Data Home Medications ?Medication ?Instructions ?Recorded ?Confirmed albuterol sulfate 90 mcg/actuation inhalation 06/25/24 06/25/24 aerosol inhaler (Ventolin HFA) dapagliflozin propanediol 5 mg mg PO DAILY 06/25/24 tablet (Farxiga) glipizide 10 mg tablet 10 mg PO BID 06/25/24 metformin 500 mg tablet,extended mg PO 06/25/24 release 24 hr naproxen 500 mg tablet 500 mg PO BID 06/25/2406/25 omeprazole 20 mg capsule,delayed 20 mg PO DAILY 06/25/24 release sitagliptin phosphate 100 mg 100 mg PO DAILY 06/25/24 06/25/24 tablet (Januvia) Previous Rx's ?Medication ?Instructions ?Recorded cyclobenzaprine 10 mg tablet 10 mg PO TID PRN muscle s pasm #14 10/31/24 tabs oxycodone 5 mg tablet 5 mg PO Q6H PRN pain #14 tab s 10/31/24 cefadroxil 500 mg capsule 500 mg PO BID 7 days #14 cap s 03/25/25 sulfamethoxazole 800 1 tab PO Q12H 5 days #10 tab s 03/25/25 mg-trimethoprim 160 mg tablet (Bactrim DS) Allergies Allergy/AdvReac Type Severity Reaction Status Date / Time No Known Allergies Allergy Verified 04/17/25 14:27 Review of Systems 2 Review of Systems: Yes all other systems are reviewed and are negative FOR[facility]LY [facility] Past Medical History Attestation statement: The following information was validated with the patient. Source: old records reviewed, obtained from family and nursing notes reviewed Medical History Asthma Diabetes Family History Family History Mother Diabetes Father Diabetes Heart problem Social History Social History Alcohol intake: current Alcohol intake frequency: a few times a week Alcohol type: hard liquor Patient Tobacco Use Status: Current someday Tobacco user Tobacco use type: Cigarette Cigarette Packs Per Day: 1 Years Smoked: 333 Substance Use Type: Crack/Cocaine Advance Directives: No Advance Directives Information Provided: No Do you have a plan to hurt others: No Plan Physical Exam ED Exam Exam: - Left hand/thumb: Open granulating wound with central pocket; no purulent drainage. Surrounding skin warm, dry, peeling with significant scar tissue; minimal residual swelling. No foreign body visible. Neurovascular status intact. measurements and pic as below Vital Signs: Vital Signs - 24 hr 04/17/25 14:22 04/17/25 17:43 Temperature 98.5 F Pulse Rate 107 H 86 Respiratory Rate 18 Blood Pressure 196/87 H Pulse Oximetry 99 Oxygen Delivery Method Room Air BMI result Body Mass Index 28.8 Course Course Course Narrative: Rapid medical examination performed in triage by Caro Melendez PA-C: Patient is a 54 year old assigned male at presenting to the emergency department with left hand swelling / pain. Patient states that over the last 3 weeks he has had left hand swelling / wound after a pressure treated wood splinter. Detailed physical exam and review of systems are deferred to the primary products inspectors. Labs and imaging ordered. Patient placed back in the waiting room pending room availability and results. Medical Decision Making Medical Decision Making MDM Narrative: 54 year old M here with hx of DM not compliant with PO meds on a regular basis. S/p I and D here three weeks ago. Open left hand wound showing satisfactory healing without signs of active infection; diabetes poorly controlled (A1c 11.2 %). Wound evaluation: Left hand wound with dehiscence measuring approximately 2 mm x 2 mm, slightly visible subcutaneous tissue, granulation tissue present, no erythema, induration, tenderness, or odor. Significant scar tissue present. Total wound length approximately 0.75 cm. Wound is nontender, sensation fully intact, capillary refill <3 seconds, distal pulses 2+, deep tendon reflexes intact. Laboratory and vital signs: Afebrile (98.5 F oral), heart rate 86 (was 107 on arrival), blood pressure 196/86. No leukocytosis (WBC normal), ESR normal at 12, A1C 11.2. Problem #1: Left hand open wound, status post I&D for prior infection Assessment: Healing granulating pocket with scar tissue; dehiscence 2 mm x 2 mm, slightly visible subcutaneous tissue, granulation tissue present, no signs of active infection (no erythema, induration, tenderness, or odor), WBC normal, ESR normal, afebrile, neurovascular status intact. Plan: * Daily gentle soap and water cleansing. * Pack pocket daily with wet saline gauze; cover with dry dressing. * Apply petroleum jelly (or Bacitracin) to wound and surrounding dry skin. * Avoid alcohol or peroxide on wound; use hypoallergenic soap (e.g., Dove). * Work modification: avoid heavy gripping/vibrating tools with left hand for ? 2 weeks; note offered. * Return for reevaluation or sooner if increased pain, erythema, drainage, or fever. Problem #2: Type 2 Diabetes Mellitus, uncontrolled Assessment: A1c 11.2 % indicates poor glycemic control; patient currently non- adherent with oral agents. Poor glycemic control is contributing to delayed wound healing. Most recent glucose value is 411 today (previously 434 three weeks ago). Patient is not dehydrated and is able to tolerate oral fluids. Plan: * Discussed importance of resuming diabetes medications (metformin, Januvia, glipizide) and consistent use. * Reviewed impact of hyperglycemia on wound healing. * Emphasized prompt outpatient follow-up with primary care provider for likely initiation of insulin therapy and possible referral to endocrinology for comprehensive diabetes management. * No new diabetes medications initiated today This case involves a 54-year-old male with a history of poorly controlled type 2 diabetes (A1c 11.2%, glucose 411 today, previously 434 three weeks ago), presenting for evaluation of a left hand wound status post incision and drainage (I&D) for prior infection. The wound examination reveals granulation tissue, no signs of active infection, no leukocytosis, ESR normal, afebrile, and neurovascularly intact. The patient is not dehydrated and tolerates oral fluids. Diabetes is poorly controlled due to medication non-adherence; however, there are no acute complications of hyperglycemia (no DKA, no HHS) identified at this time.Risk assessment: The wound is healing with low risk for acute infection, but there is a high risk for delayed healing due to uncontrolled diabetes. The patient is stable, not septic, and able to follow up as an outpatient.Decision: Inpatient admission is not indicated as the patient does not meet criteria for sepsis or acute metabolic complications. The patient will be discharged home with wound care instructions, resumption of diabetes medications, and urgent primary care follow-up for likely insulin initiation and possible endocrine referral. The rationale for outpatient management is based on the patient's stable condition, absence of acute infection, and ability to tolerate oral intake. Close follow-up is emphasized given the elevated glucose and concerns for wound healing in the context of poorly controlled diabetes. Differential Diagnosis Differential Diagnoses: The differential diagnosis associated with the presentation includes See [facility] Admission/Observation Consideration of admission/observation: Escalation of care including admission/observation considered Lab Data [facility] Lab Attestation statement: I reviewed the patient's lab results. 04/17/25 15:16 04/17/25 15:16 Labs: Lab Results 04/17/25 04/17/25 04/17/25 Range/Units 15:15 15:16 18:10 WBC 5.3 (4.8-10.8) X10*3/uL RBC 5.08 (4.60-5.80) X10*6/uL Hgb 15.7 (14.0-18.0) g/dl Hct 45.9 (42.0-52.0) % MCV 90.4 (80.0-98.0) fL MCH 30.9 (27.0-33.0) pg MCHC 34.2 (31.0-36.0) g/dl RDW 11.6 (11.0-16.0) % Plt Count 186 (160-400) X10*3/uL MPV 11.3 (9.4-12.4) fL Immature Gran % (Auto) 0.4 (0.0-0.4) % Neut % (Auto) 60.0 (45-73) % Lymph % (Auto) 27.1 (20-40) % [place] % (Auto) 9.4 (2-11) % Eos % (Auto) 2.3 (0-4) % Baso % (Auto) 0.8 (0-2) % Lymph # (Auto) 1.4 (1.2-4.9) X10*3/uL [place] # (Auto) 0.5 (0.1-1.2) X10*3/uL Eos # (Auto) 0.1 (0.0-0.4) X10*3/uL Baso # (Auto) 0.0 (0.0-0.2) X10*3/uL Abs Immat Gran (auto) 0.02 (0.00-0.03) X10*3/uL Absolute Neuts (auto) 3.2 (2.0-8.3) x10*3/uL Absolute Nucleated RBC 0.000 (0.0-0.012) X10*3/uL Nucleated RBC % (auto) 0.0 (0.0-0.2) /100WBC ESR 12 (0-15) MM/HR Sodium 134 L (135-145) mmol/L Potassium 4.2 (3.3-5.1) mmol/L Chloride 99 (96-108) mmol/L Carbon Dioxide 24 (22-29) mmol/L Anion Gap 15 (12-20) BUN 14 (9-16) mg/dL Creatinine 0.82 (0.5-1.4) mg/dL Estim Creat Clear Calc 98.3 Estimated GFR > 60 Random Glucose 411 H* (60-115) mg/dL Estimat Average Glucose 275 mg/dL Hemoglobin A1c % 11.2 H (<6.0) % Lactic Acid 2.1 H* (0.5-2.0) mmol/L Lactic Acid F/U @ 2Hr 2.7 H* (0.5-2.0) mmol/L Calcium 9.7 D (8.4-10.2) mg/dL Magnesium 1.8 (1.6-2.6) mg/dL Total Bilirubin 0.5 (0.0-1.0) mg/dL AST 15 (5-37) U/L ALT 19 (0-40) U/L Alkaline Phosphatase 112 (39-117) U/L C-Reactive Protein 0.82 H (< or = 0.50) mg/dL Total Protein 7.5 (6.5-8.0) g/dL Albumin 4.8 (3.5-5.0) g/dL Independent Interpretation I performed an independent interpretation of an: Plain X-Ray Interpretation: no f/b or gas in tissue noted on imaging Radiology Impression Discussion of test interpretation with radiology: I have reviewed the radiologist's reading. Independent Historian Clinical information obtained from an independent historian. History obtained from or confirmed by: Spouse Tests considered The following testing was considered but not selected: Considered CT /uS of hand but no erythema, tenderness fluctuance or NVC. Prescription Management I considered prescription management with: Pain Medication and Antibiotic Chronic Conditions Patient?s care impacted by: Diabetes Social Determinants Patient?s care significantly limited by Social Determinants of Health including: Other Social Determinant of Health Discharge Plan Discharge Clinical Impression: Open wound of left hand Diabetes Qualifiers: Diabetes mellitus type: type 2 Diabetes mellitus usp insulin use: without usp use Diabetes mellitus complication status: with hyperglycemia Q ualified Code(s): E11.65 - Type 2 diabetes mellitus with hyperglycemia Patient Disposition: Home, Self-Care Instructions: Diabetes and Nutrition (ED), How to Check your Blood Sugar (DC) Additional Instructions: Discharge Instructions for Hand Wound and Diabetes You are being discharged home today. Follow these instructions carefully to help your hand heal and manage your diabetes. Wound Care for Your Left Hand Your hand wound is healing well. There is no infection right now. Keep the wound clean and covered to help it heal. How to care for your wound each day: 1. Wash your hands before touching the wound. 2. Gently clean the wound with mild soap (like Dove) and water. 3. Rinse well with clean water. 4. Pat the area dry with a clean towel. 5. Apply a small amount of petroleum jelly (like Vaseline) or antibiotic ointment (like Bacitracin) to the wound and the dry skin around it 6. Cover with a clean, dry bandage. 7. Change the bandage daily or if it gets wet or dirty. What NOT to do: - Do not use rubbing alcohol or hydrogen peroxide on the wound. - Do not soak your hand in water for long periods. - Avoid heavy gripping or using vibrating tools with your left hand for the next 2 weeks. Managing Your Diabetes Your diabetes is not well controlled. Your A1c is 11.2% and your blood sugar today was 411. This is too high and slows down healing. What you need to do: 1. Start taking your diabetes medications again (metformin, Januvia, and glipizide). Take them every day as prescribed 2. High blood sugar makes it harder for wounds to heal and increases your risk of infection. 3. You need to see your primary care doctor soon. You will likely need to start insulin or change your medications. When to Go to the Emergency Room or Call Your Doctor Right Away Call 911 or go to the emergency room if you have: - Increasing pain in your hand (especially pain that seems worse than it should be) - Red streaks going up your arm from the wound - Pus or foul-smelling drainage from the wound - Fever (temperature over 100.4?F or 38?C) - Chills or shaking - The wound becomes more red, warm, sw Prescriptions: No Action cyclobenzaprine 10 mg tablet 10 mg PO TID PRN (Reason: muscle spasm) Qty: 14 0RF oxycodone 5 mg tablet 5 mg PO Q6H PRN (Reason: pain) Qty: 14 0RF Rx Instructions: Partial Fill upon patient request. sulfamethoxazole-trimethoprim [Bactrim DS] 800-160 mg tablet 1 tab PO Q12H 5 Days Qty: 10 0RF cefadroxil 500 mg capsule 500 mg PO BID 7 Days Qty: 14 0RF dapagliflozin propanediol [Farxiga] 5 mg tablet PO DAILY glipizide 10 mg tablet 10 mg PO BID metformin 500 mg tablet extended release 24 hr PO albuterol sulfate [Ventolin HFA] 90 mcg/actuation HFA aerosol inhaler inhalation naproxen 500 mg tablet 500 mg PO BID omeprazole 20 mg capsule,delayed release(DR/EC) 20 mg PO DAILY Januvia 100 mg tablet 100 mg PO DAILY Referrals: Rosario Lopez NP [Primary Care Provider, Internal Medicine] Referral Note: consider endocrine referral vs starting insulin Clinical Impression: Open wound of left hand; Diabetes Stand Alone Forms: Work/School Release Interventions: ED Discharge Assessment Last Done: 04/17/25 19:10 Discharge Date/Time: 04/17/25 19:11 Print Language: Maori
[2025-04-17 15:22] LABS: MANUAL DIFF FLAG NO
[2025-04-17 15:23] LABS: Hematocrit 45.9 % (42.0-52.0); Hemoglobin 15.7 g/dl (14.0-18.0); Imm Gran Abs Auto 0.02 X10*3/uL (0.00-0.03); Imm Gran Pct Auto 0.4 % (0.0-0.4); Lymphocytes Absolute Auto 1.4 X10*3/uL (1.2-4.9); Mean Corpuscular HGB Conc 34.2 g/dl (31.0-36.0); Mean Corpuscular Hemoglobin 30.9 pg (27.0-33.0); Mean Corpuscular Volume 90.4 fL (80.0-98.0); NRBC Abs Auto 0.000 X10*3/uL (0.0-0.012); NRBC Pct Auto 0.0 /100WBC (0.0-0.2); Platelet Count 186 X10*3/uL (160-400); Red Blood Count 5.08 X10*6/uL (4.60-5.80); White Blood Count 5.3 X10*3/uL (4.8-10.8)
[2025-04-17 16:03] LABS: Erythrocyte Sedimentation Rate 12 MM/HR (0-15)
[2025-04-17 17:20] LABS: Reflex Lactate? Lactic Acid Added
[2025-04-17 17:43] VITALS: PULSE 86
--- NOTE | 2025-04-17 18:01 | MHC.EDTECH ---
this tech called chem for results of chemistry states pending for 2 hours, laboratory mechanic helper stated the analizyer been down, they will re-run it shortly
[2025-04-17 18:22] LABS: Alanine Aminotransferase 19 U/L (0-40); Albumin Level 4.8 g/dL (3.5-5.0); Alkaline Phosphatase 112 U/L (39-117); Anion Gap 15 (12-20); Aspartate Amino Transferase 15 U/L (5-37); Blood Urea Nitrogen 14 mg/dL (9-16); Calcium 9.7 mg/dL (8.4-10.2); Carbon Dioxide 24 mmol/L (22-29); Chloride 99 mmol/L (96-108); Creatinine Clr Calc Pharmacy 98.3; Estimated Glomerular Filt Rate > 60; Magnesium 1.8 mg/dL (1.6-2.6); Potassium 4.2 mmol/L (3.3-5.1); Sodium 134 mmol/L (135-145); Total Protein 7.5 g/dL (6.5-8.0)
[2025-04-17 18:42] LABS: ~Lactic Acid-LAB USE ONLY 2.7 mmol/L (0.5-2.0)
[2025-04-17 19:10] VITALS: BP 132/80; PULSE 92; RESP 18; TEMP 36.5; O2SAT 94
[2025-04-17 20:13] LABS: Reflex Lactate? 2 Y
== END 2025-04-17 19:11 | disposition home or self-care (01) ==
PROVIDERS: Physician Assistant Medical; Emergency Provider Student in an Organized Health Care Education/Training Program; PCP Nurse Practitioner Family
DX: S61.402A Unspecified open wound of left hand, initial encounter (principal); M79.642 Pain in left hand; E11.65 Type 2 diabetes mellitus with hyperglycemia; X58.XXXA Exposure to other specified factors, initial encounter; Y93.9 Activity, unspecified; Y92.9 Unspecified place or not applicable; Y99.8 Other external cause status; Z79.84 Long term (current) use of oral hypoglycemic drugs; Z79.899 Other long term (current) drug therapy
CPT/HCPCS: 36415; 73130; 80053; 83036; 83605; 83735; 85025; 85652; 86140; 87040; 99284

== ENCOUNTER → 2025-04-17 14:23 | Outpatient (BNV) | payer OTHER, SELFPAY | PROVIDERS: PCP Nurse Practitioner Family; Visit Provider Radiology Diagnostic Radiology | DX: M18.12 Unilateral primary osteoarthritis of first carpometacarpal joint, left hand (principal) | CPT/HCPCS: 73130 ==